=== PATIENT | male | born 1945 | race Caucasian/White ===

== ENCOUNTER 2022-03-09 08:26 | Outpatient (CLI) | payer OTHER, SELFPAY ==
[2022-03-09 12:52] LABS: Cholesterol* 178 mg/dL (90-199)
[2022-03-09 12:53] LABS: HDL Cholesterol* 39 mg/dL (>=40); LDL Cholesterol Calculated 121 mg/dL (<100); Triglycerides* 89 mg/dL (40-149)
[2022-03-09 14:10] LABS: Albumin* 3.8 g/dL (3.3-5.0); Chloride* 111 mmol/L (96-114); Potassium* 4.5 mmol/L (3.6-5.1); Sodium* 140 mmol/L (135-149)
[2022-03-09 14:13] LABS: Alanine Aminotransferase* 17 U/L (4-50); Alkaline Phosphatase* 69 U/L (40-150); Aspartate Amino Transferase* 19 U/L (12-35); Bilirubin Total* 0.6 mg/dL (0.1-1.5); Blood Urea Nitrogen* 18 mg/dL (7-30); Carbon Dioxide* 28 mmol/L (20-32); Creatinine* 0.8 mg/dL (0.5-1.5); Estimated Glomerular Filt Rate 92.29; Glucose* 109 mg/dL (60-115); Total Protein* 6.1 g/dL (6.0-8.3)
[2022-03-09 14:14] LABS: Calcium* 8.8 mg/dL (8.4-10.6)
[2022-03-09 14:45] LABS: PSA Screen* 0.36 ng/mL (0.10-4.00)
[2022-03-10 09:37] LABS: Glucose* 108 mg/dL (60-115)
== END 2022-03-09 08:27 | disposition home or self-care (01) ==
PROVIDERS: PCP Internal Medicine; Visit Provider Internal Medicine
DX: Z00.00 Encounter for general adult medical examination without abnormal findings (principal); E78.5 Hyperlipidemia, unspecified; Z13.9 Encounter for screening, unspecified; E66.9 Obesity, unspecified; Z13.1 Encounter for screening for diabetes mellitus; Z12.5 Encounter for screening for malignant neoplasm of prostate
CPT/HCPCS: 80053; 80061; 82947; 84153

== ENCOUNTER 2022-05-01 08:48 | Outpatient (RCR) | payer OTHER, SELFPAY ==
--- NOTE | 2022-05-01 10:09 | PT.OPEX ---
PT [place] Outpatient Eval PT [facility] Outpatient Eval Start: 05/01/22 09:37 Freq: Status: Active Protocol: Document 05/01/22 09:37 PAIGE (Rec: 05/01/22 10:02 PAIGE [email or web address]) E-signed By Allison Rasheed DPT Physical Therapy Outpatient Evaluation Insurance Information Recert Due Date 07/15/22 Insurance Name [employer] Medical Diagnosis L leg numbness anesthesis of skin Treating Diagnosis L ITB tightness, LB tightness, core/hip/glut weakness Subjective Subjective Patient c/o numbness in his L lateral thigh region - notices it when he touches the area. He denies pain and denies any feeling of tingling/numbness unless he is touching the area . States he was lifting a hitch bike rack into position this past February and had some back pain from the lift. The LBP lasted about 4-5 days and resolved. Patient is concerned that this numbness is related to the back injury. He has been extra careful with lifting since that injury . He has been able to perform his regular daily activities without issues. Denies pain, 0/10. Not needing pain meds. He was using ice/heat initially for his back but nothing lately. Sleep has been ok. Denies any hx of LBP issues. He reports feeling a knotted area in L lateral thigh with rubbing it. Date of Last Physician Visit 04/16/22 Precautions Therapy Limitations/Systems Review Not Limited Assessment Assessment/Impression Patient is a 77 year old male with L ITB tightness, LB tightness, core/hip/glut weakness. He denies pain. Reports having LBP back for 4- 5 days in February after lifting a bike rack. This resolved. Patient reports noticing numbness with touching his L outer thigh region. He denies any burning, tingling, numbness down L LE other than a numb feeling when he touches that area. Patient with L ITB tightness, tenderness with palpation. There is an area of tissue tightness in mid ITB that is the patient's area of concern. L hip/knee ROM are WFL. Patient with some tightness/ stiffness in L hip/LB. Able to loosen up some with treatment this session. Pelvic alignment assessed and equal. Patient reports having a fall earlier this year, landing on his L side and having some L shoulder soreness - doesn't recall any L hip/thigh soreness from that fall. He is hoping to get a HEP to continue with to improve, decreased the numbness in his thigh. Patient would benefit from skilled PT for sx management, improved ITB flexibility, core /hip/glut strengthening, and establishment of HEP. Plan of Care Rehabilitation Potential Good Physical Therapy Goals 1. Decrease/maintain L hip/ thigh pain at less than/equal to 3/10 with daily activities and with the progression of PT activities over the next 4-6 weeks. 2. Improve L ITB flexibility and decrease tightness/ tenderness over the next 4-6 weeks for decreased feeling of numbness in L lateral thigh region. 3. Improve hip/glut/LE/core strength over the next 6-8 weeks for return to full/normal daily activities without flare up of back/hip/thigh pain/sx. 4. Patient will be I with HEP within 8 weeks for progression toward above goals, ongoing self management of pain/sx, ongoing self improvements in L hip ROM/mobility/strength, and for performance of daily activities without flare up of pain. Coordination/Communication With Referral Source Treatment Plan/Direct Interventions Manual Therapy,Therapeutic Exercises Frequency/Duration 1x/week Patient Will Be Discharged From Therapy Completion of LTG(s),Skills Plateau,Independent w/HEP, Independently Progressing Evaluation Billing Untimed Code Treatment Minutes 24 Complexity Low Certification Information Initial Certification Date 05/01/22 Ending Certification Date 07/15/22 Provider Signature Shows Agreement With POC & Medical Necessity Physician Comment/Change Comment or Changes Physician NPI Number #
== END 2022-09-01 10:57 | disposition home or self-care (01) ==
PROVIDERS: PCP Internal Medicine; Visit Provider Internal Medicine
DX: R20.0 Anesthesia of skin (principal); Z51.89 Encounter for other specified aftercare
CPT/HCPCS: 97110; 97140; 97161

== ENCOUNTER 2022-05-08 12:54 | Outpatient (CLI) | payer OTHER, SELFPAY ==
--- OUTSIDE RECORDS SUMMARY | 2022-05-08 12:57 | XMS_ITS | Clinical Summary ---
:1945 Author Organization [facility] [place] [address] Care Team Providers Name Role Phone Sixto Barros MD Primary Care Provider Allergies No known active allergies Medications Medication Sig Dispensed Refills Start Date End Date Status VITAMIN C SR 1,000 MG daily 0 06/08/2007 Active TAB TRIAMCINOLONE ACETONIDE apply a thin 0 06/08/2007 Active 0.1 % TOPICAL CREAM film to the affected skin areas by topical route 2 times per day prn finasteride (PROSCAR) 5 Take 5 mg by 0 07/22/2021 Active mg tablet mouth once daily. cholecalciferol (VITAMIN 0 08/30/2019 Active D3) 1,000 unit capsule Active Problems Not on file Encounters Date Type Specialty Care Team Description 04/08/2022 Office Visit Toño Velasquez, [place] Hearing Problem 04/08/2022 Travel 03/12/2022 Telephone Toño Velasquez, [place] Referral from Last 3 Months Immunizations Name Administration Dates Next Due Td (Age >=7 Years) 08/30/2002 Social History Tobacco Use Types Packs/Day Years Used Date Former Smoker Smokeless Tobacco: Never Used Tobacco Cessation: Counseling Given: Yes Comments: smoked for about 20 years; rhonda t at age 41. Alcohol Use Standard Drinks/Week Comments Yes 0 (1 standard drink = 0.6 oz pure alcoho l) Sex Assigned at Date Recorded Not on file COVID-19 Exposure Response Date Recorded In the last 10 days, have you been in contact with No / Unsu re 04/08/2022 8:24 AM CDT someone who was confirmed or suspected to have Coronavirus/COVID-19? Obstetrics History Last Filed Vital Signs Vital Sign Reading Time Taken Comments Blood Pressure 139/81 12/29/2021 9:44 AM CDT Pulse 81 12/29/2021 9:44 AM CDT Temperature - - Respiratory Rate 18 12/29/2021 9:44 AM CDT Oxygen Saturation 96% 12/29/2021 9:44 AM CDT Inhaled Oxygen Concentration - - Weight 105.3 kg (232 lb 3.2 oz) 12/29/2021 9:44 AM CDT Height - - Body Mass Index - - Plan of Treatment Health Maintenance Due Date Last Done Comments Tdap 1957 Depression screening for age 12+ 1958 BMI (ht and wt on same day) for 1964 age 18+ Hepatitis C screening for age 0804/17/1964 18-79 Zoster (shingles) series for age 0804/17/1996 50+ (1 of 2) Medicare Wellness for age 65+ 2011 Pneumococcal series for age 65+ (1 2011 - PCV) Tetanus booster 08/30/2012 08/30/2002 Influenza for age 65+ 04/30/2022 COVID-19 vaccine series Completed 01/27/2022, 06/03/2021, 11/09/2020, Additional history exists Results Not on filefrom Last 3 Months Insurance Payer Benefit Plan / Subscriber ID Effective Dates Phone Addre ss Type Group [employer] MEDICARE [id number] 2019-Present [address] [place] [address] Care Teams Campus Supervisor Relationship Specialty Start Date End Date Sixto Barros MD PCP - General Internal Medicine 09/01/211999 [place] [address]
--- NOTE | 2022-05-08 13:00 | CRLHL7_ITS ---
For Patients: As a result of the Century Cures Act, medical imaging exams and procedure reports are released immediately into your electronic medical record. You may view this report before your referring provider. If you have questions, please contact your health care provider. INDICATION: Perineal abscess. TECHNIQUE: Pelvic MRI focusing on the anal canal with T1, T2, and postcontrast images. Intravenous gadolinium administered. 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 No other peroneal inflammatory changes or abnormal fluid collections. No pelvic masses or adenopathy. 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 Dictated by Samuel Le MD @ 05/14/2022 10:45:53 AM (Electronically Signed)
== END 2022-05-08 12:55 | disposition home or self-care (01) ==
LOC: MRI 12:55
PROVIDERS: PCP Internal Medicine; Visit Provider Surgery
DX: L02.215 Cutaneous abscess of perineum (principal)
CPT/HCPCS: 72197; A9575

== ENCOUNTER 2022-06-18 14:00 | Outpatient (CLI) | payer OTHER, SELFPAY ==
--- OUTSIDE RECORDS SUMMARY | 2022-06-18 14:04 | XMS_ITS | Clinical Summary ---
:1945 Author Organization [facility] [place] [address] Care Team Providers Name Role Phone Sixto [...] Toño Velasquez, [place] Hearing Problem 04/08/2022 Travel from Last 3 Months Immunizations Name Administration [...] Assigned at Date Recorded Not on file Obstetrics History Last Filed Vital Signs Vital [...] 2011 - PCV) Tetanus booster 08/30/2012 08/30/2002 COVID-19 vaccine series (5 - 03/24/2022 01/27/2022, 021, Booster for Pfizer series) 11/09/2020, Additiona l history exists Influenza for age 65+ 04/30/2022 Results Not on filefrom Last 3 Months Insurance Payer Benefit Plan / Subscriber ID Effective Dates Phone Addre ss Type Group [employer] MR LISANDRA MEDICARE [id number] 2019-Present [address] [place] [address] Care Teams Group Exercise Instructor Relationship Specialty Start Date End Date Sixto Barros MD PCP - General Internal Medicine 09/01/211999 [place] [address]
[2022-06-18 17:16] LABS: Chloride* 106 mmol/L (96-114)
[2022-06-18 17:17] LABS: Potassium* 3.9 mmol/L (3.6-5.1); Sodium* 138 mmol/L (135-149)
[2022-06-18 17:19] LABS: Creatinine* 0.9 mg/dL (0.5-1.5); Estimated Glomerular Filt Rate 89 ml/min
[2022-06-18 17:20] LABS: Blood Urea Nitrogen* 14 mg/dL (7-30); Calcium* 9.2 mg/dL (8.4-10.6); Carbon Dioxide* 24 mmol/L (20-32); Glucose* 167 mg/dL (60-115)
== END 2022-06-18 14:01 | disposition home or self-care (01) ==
PROVIDERS: PCP Internal Medicine; Visit Provider Internal Medicine
DX: K61.0 Anal abscess (principal); E66.9 Obesity, unspecified; R73.03 Prediabetes
CPT/HCPCS: 80048

== ENCOUNTER 2023-03-31 07:50 | Outpatient (CLI) | payer MEDICARE, SELFPAY | END 2023-03-31 07:51 | disposition home or self-care (01) | LOC: NFLDREF 04-01 07:00 | PROVIDERS: PCP Internal Medicine; Referring Provider Internal Medicine; Visit Provider Internal Medicine | DX: R73.03 Prediabetes (principal); E78.5 Hyperlipidemia, unspecified; Z12.5 Encounter for screening for malignant neoplasm of prostate | CPT/HCPCS: 80053; 80061; 84153 ==

== ENCOUNTER 2023-04-06 07:50 | Outpatient (CLI) | payer MEDICARE, SELFPAY | END 2023-04-06 07:51 | disposition home or self-care (01) | LOC: NFLDREF 04-07 14:01 | PROVIDERS: PCP Internal Medicine; Referring Provider Internal Medicine; Visit Provider Internal Medicine | DX: M25.569 Pain in unspecified knee (principal); N32.81 Overactive bladder; E78.5 Hyperlipidemia, unspecified; R73.03 Prediabetes; K60.3 Anal fistula | CPT/HCPCS: 87086 ==

== ENCOUNTER 2023-05-25 12:44 | Emergency (ER) | payer MEDICARE, SELFPAY ==
[2023-05-25 13:53] VITALS: BP 185/79; PULSE 55; RESP 16; TEMP 36.6; O2SAT 98; BMI 32.1
--- NOTE | 2023-05-25 14:32 | CRLHL7_ITS ---
For Patients: As a result of the Century Cures Act, medical imaging exams and procedure reports are released immediately into your electronic medical record. You may view this report before your referring provider. If you have questions, please contact your health care provider. INDICATION: Vertigo. TECHNIQUE: MRI brain: Multiplanar multisequence MR imaging acquired prior to and following intravenous contrast. MRA head: Wtcy-hj-pjktir imaging acquired. MRA neck: [id number]-[id number] and postcontrast imaging acquired. COMPARISON: None. FINDINGS: MRI brain: Prominence of the ventricles and sulci compatible with mild diffuse cerebral volume loss. No mass effect or midline shift. Scattered FLAIR hyperintensities in the supratentorial white matter, typical for mild chronic microvascular ischemic changes. No diffusion restriction to suggest acute infarction. No intracranial hemorrhage or pathologic extra-axial fluid collection. No pathologic intracranial enhancement. The major arterial flow voids of the skullbase are preserved. The globes are symmetric. Mild paranasal sinus mucosal thickening. The mastoid air cells are clear. MRA head: Artifact degrades image quality. The internal carotid, middle cerebral, and anterior cerebral arteries are widely patent. The vertebral, basilar, and posterior cerebral arteries are widely patent. No intracranial aneurysm or high-flow vascular malformation. MRA neck: The innominate and subclavian arteries are widely patent. The common carotid arteries are widely patent. The internal carotid arteries are widely patent. The vertebral arteries are codominant and widely patent. IMPRESSION: 1. No acute intracranial abnormality. 2. Mild chronic microvascular ischemic changes and diffuse cerebral volume loss. 3. Widely patent intracranial and cervical vasculature. Dictated by Evan George MD @ 05/25/2023 4:36:37 PM (Electronically Signed)
[2023-05-25 14:54] VITALS: PULSE 59; O2SAT 96
[2023-05-25 14:55] VITALS: BP 151/74; PULSE 58; RESP 16; O2SAT 98
[2023-05-25 14:59] LABS: Basophils Absolute Auto 0.02 K/uL (0.00-0.30); Basophils Percent Auto 0.3 % (0.0-3.0); Eosinophils Absolute Auto 0.05 K/uL (0.00-0.50); Eosinophils Percent Auto 0.7 % (0.0-7.0); Hemoglobin* 16.1 gm/dL (13.5-17.5); Immature Granulocytes Abs Auto 0.03 K/uL (0.00-0.30); Immature Granulocytes Pct Auto 0.4 %; Lymphocytes Percent Auto 8.8 % (20-44); Mean Corpuscular HGB Conc 35 gm/dL (32-36); Mean Corpuscular Hemoglobin 30 pg (26-34); Mean Corpuscular Volume 87 fL (80-100); Monocytes Percent Auto 5.4 % (0.0-11.0); Neutrophils Percent Auto 84.4 % (42.0-72.0); Platelet Count* 168 K/uL (140-440); RDW Coefficient of Variation % 12.4 % (11.5-15.5); Red Blood Count 5.31 m/uL (4.30-5.90); White Blood Count* 6.69 K/uL (4.50-11.00)
[2023-05-25 15:15] LABS: Chloride* 106 mmol/L (96-114); Potassium* 4.7 mmol/L (3.6-5.1); Sodium* 138 mmol/L (135-149)
[2023-05-25 15:18] LABS: Anion Gap 7 mEq/L (7-15); Blood Urea Nitrogen* 13 mg/dL (7-30); Calcium* 9.4 mg/dL (8.4-10.6); Carbon Dioxide* 25 mmol/L (20-32); Creatinine* 0.7 mg/dL (0.5-1.5); Est. Creatinine Clearance* 65.89; Estimated Glomerular Filt Rate 95 ml/min; Glucose* 121 mg/dL (60-115)
[2023-05-25 15:27] LABS: Slide Review Reflex No
[2023-05-25 16:54] VITALS: BP 147/75; RESP 18; O2SAT 98
--- NOTE | 2023-05-25 16:56 | ED_ITS ---
HPI - General Adult General Date Seen: 05/25/23 Chief complaint: Nausea/Vomiting Stated complaint: Nausea, dizzy, numb, pain in shoulder Time Seen by Provider: 05/25/23 14:18 Source: patient Mode of arrival: ambulatory Limitations: no limitations History of Present Illness HPI narrative: Patient is a 78-year-old male who presents after an episode of vertigo earlier today. He says that this morning he had onset of spinning and imbalance associated with severe nausea, no vomiting. He did not have any associated headache, difficulty with speech or swallowing, he notes that he held onto the wall to get himself to the bathroom where he thought he might throw up but did not. He then laid on the bathroom floor for about an hour because he did not think he would be able to stand up. At some point thereafter his became aware of his situation. They waited at home for another couple hours, symptoms gradually improved and now he feels largely back to normal. He has no history of similar symptoms in the past, denies any history of diabetes, stroke, coronary artery disease or atrial fibrillation. He said sometime in the last year so he was little worried about his blood pressures, had tracked them for a few weeks and then discussed with primary care, who did not feel that he needed treatment for hypertension. Related Data Home Medications Medication Instructions Recorded Confirmed ascorbic acid (vitamin C) 500 mg 1,000 mg PO DAILY 03/12/22 04/23/23 tablet cholecalciferol (vitamin D3) 25 25 mcg PO QDAY 04/06/23 04/23/23 mcg (1,000 unit) capsule Previous Rx's Medication Instructions Recorded finasteride 5 mg tablet 5 mg PO DAILY #90 tabs 02/04/23 tolterodine 1 mg tablet (Detrol) 1 mg PO QDAY Overactive Bladder 05/04/23 #90 tabs Allergies Allergy/AdvReac Type Severity Reaction Status Date / Time No Known Allergies Allergy Verified 04/23/23 10:57 Review of Systems Status of ROS: Reports: 10 or more systems reviewed and unremarkable except as noted in History and below [facility] Medical History Recurrent knee pain ?M25.569 - Pain in unspecified knee (ICD-10) Subconjunctival hemorrhage ?H11.30 - Conjunctival hemorrhage, unspecified eye (ICD-10) Left leg numbness ?R20.0 - Anesthesia of skin (ICD-10) Health care directive on file ?Z78.9 - Other specified health status (ICD-10) Overactive bladder ?N32.81 - Overactive bladder (ICD-10) Hearing loss ?H91.90 - Unspecified hearing loss, unspecified ear (ICD-10) Hemorrhoids ?K64.9 - Unspecified hemorrhoids (ICD-10) Social History Smoking Status: Never smoker Little interest or pleasure in doing things: not at all Feeling down, depressed, or hopeless: not at all Exam Narrative: Exam Narrative: Vital signs as noted above. In general, an alert, well-appearing patient. Head: Normocephalic, atraumatic. Eyes: Pupils are equal reactive. Extraocular movements are full. Conjunctivae are normal. No nystagmus. ENT: Mucous membranes are moist. Throat is normal. Neck: Supple without lymphadenopathy. No bruits. Heart: Regular rate and rhythm. No murmur or rub. Lungs: Clear bilaterally. No increased work of breathing, crackles or wheezes. Abdomen: Soft and nontender. No organomegaly. Extremities: Well perfused. No edema. No calf tenderness. Pulses intact. Neurologic: Patient is alert and oriented to person and place. Speech is fluent. Face is symmetric. Moves all extremities equally. Cerebellar function is intact by finger-nose and heel-silva testing. Affect: Normal. Skin: Warm and dry. Well perfused. Const: Vital Signs, click to edit/add: Vital Signs - 24 hr 05/25/23 13:53 05/25/23 14:54 05/25/23 14:55 Temperature 97.9 F Pulse Rate 59 L 58 L Pulse Rate [Right Pulse Oximeter] 55 L Respiratory Rate 16 16 Blood Pressure 151/74 H Blood Pressure [Ri ght Upper Arm] 185/79 H Pulse Oximetry 98 96 98 Oxygen Delivery Me thod Room Air 05/25/23 16:54 Temperature Pulse Rate Pulse Rate [Right Pulse Oximeter] Respiratory Rate 18 Blood Pressure Blood Pressure [Ri ght Upper Arm] 147/75 H Pulse Oximetry 98 Oxygen Delivery Me thod Room Air Documenting provider has reviewed patient's vital signs: yes Course Course ED Course: Etiology of his symptoms is unclear at this time, he is not currently symptomatic but exam is certainly normal right now. Given his age and shorter duration of symptoms I elected to do an MRI to rule out evidence of stroke or TIA. He had an EKG here which showed a sinus bradycardia ventricular rate of 57. He has a right bundle-branch block no acute ST segment changes. Labs were unremarkable, electrolytes were normal, hemoglobin 16.1. He went on to have an MRI of the brain as well as an MR angiogram of the head and neck. These are read by Radiology as follows: document embedded [address] [address] Diagnostic Imaging Report Patient: Earl Gentile (Fred) MR#: [id number] : 1945 Acct:[id number] Loc: ED Service Date: 05/25/[address]: Ordering Physician: Lynnette Blakely M.D. Date of Service: 05/25/23 Procedure(s): MR head/brain wo/w con Accession Number(s): [id number] cc: Lynnette Blakely M.D.; Sixto Barros M.D.~ For Patients: As a result of the Century Cures Act, medical imaging exams and procedure reports are released immediately into your electronic medical record. You may view this report before your referring provider. If you have questions, please contact your health care provider. INDICATION: Vertigo. TECHNIQUE: MRI brain: Multiplanar multisequence MR imaging acquired prior to and following intravenous contrast. MRA head: Pbca-qs-esjhfr imaging acquired. MRA neck: Lqbk-hk-vxalyf and postcontrast imaging acquired. COMPARISON: None. FINDINGS: MRI brain: Prominence of the ventricles and sulci compatible with mild diffuse cerebral volume loss. No mass effect or midline shift. Scattered FLAIR hyperintensities in the supratentorial white matter, typical for mild chronic microvascular ischemic changes. No diffusion restriction to suggest acute infarction. No intracranial hemorrhage or pathologic extra-axial fluid collection. No pathologic intracranial enhancement. The major arterial flow voids of the skullbase are preserved. The globes are symmetric. Mild paranasal sinus mucosal thickening. The mastoid air cells are clear. MRA head: Artifact degrades image quality. The internal carotid, middle cerebral, and anterior cerebral arteries are widely patent. The vertebral, basilar, and posterior cerebral arteries are widely patent. No intracranial aneurysm or high-flow vascular malformation. MRA neck: The innominate and subclavian arteries are widely patent. The common carotid arteries are widely patent. The internal carotid arteries are widely patent. The vertebral arteries are codominant and widely patent. IMPRESSION: 1. No acute intracranial abnormality. 2. Mild chronic microvascular ischemic changes and diffuse cerebral volume loss. 3. Widely patent intracranial and cervical vasculature. Overall at this time, I do not have significant evidence on history or workup of stroke/TIA. Symptoms are more likely to have been peripheral in nature. We discussed however that if he has recurrence of symptoms, particularly if associated with other neurologic deficits that he should come to the hospital right away rather than waiting for several hours at home. Otherwise primary care follow-up as needed for further concerns. Vital Signs Vital signs: Initial Vital Signs Temperature 97.9 F 05/25/23 13:53 Temperature Source Temporal Artery Scan 05/25/23 13:53 Pulse Rate 55 L 05/25/23 13:53 Pulse Rhythm Regular 05/25/23 13:53 Respiratory Rate 16 05/25/23 13:53 Blood Pressure 185/79 H 05/25/23 13:53 Blood Pressure Mean 114 H 05/25/23 13:53 Blood Pressure Position Sitting 05/25/23 13:53 Pulse Oximetry 98 05/25/23 13:53 Oxygen Delivery Method Room Air 05/25/23 13:53 Vital Signs Temperature 97.9 F 05/25/23 13:53 Pulse Rate 55 L 05/25/23 13:53 Respiratory Rate 16 05/25/23 13:53 Blood Pressure 185/79 H 05/25/23 13:53 Pulse Oximetry 98 05/25/23 13:53 Oxygen Delivery Method Room Air 05/25/23 13:53 Temperature 97.9 F 05/25/23 13:53 Pulse Rate 58 L 05/25/23 14:55 Respiratory Rate 18 05/25/23 16:54 Blood Pressure 147/75 H 05/25/23 16:54 Pulse Oximetry 98 05/25/23 16:54 Oxygen Delivery Method Room Air 05/25/23 16:54 Medical Decision Making Lab Data Labs: Lab Results 05/25/23 Range/Units 14:48 WBC 6.69 (4.50-11.00) K/uL RBC 5.31 (4.30-5.90) m/uL Hgb 16.1 (13.5-17.5) gm/dL Hct 46.0 (37.0-53.0) % MCV 87 (80-100) fL MCH 30 (26-34) pg MCHC 35 (32-36) gm/dL RDW Coeff of Ilir 12.4 (11.5-15.5) % Plt Count 168 (140-440) K/uL Neut % (Auto) 84.4 H (42.0-72.0) % Lymph % (Auto) 8.8 L (20-44) % Snyder % (Auto) 5.4 (0.0-11.0) % Eos % (Auto) 0.7 (0.0-7.0) % Baso % (Auto) 0.3 (0.0-3.0) % Neut # (Auto) 5.60 (1.7-7.0) K/uL Lymph # (Auto) 0.60 L (0.90-2.90) K/uL Snyder # (Auto) 0.40 (0.00-0.90) K/UL Eos # (Auto) 0.05 (0.00-0.50) K/uL Baso # (Auto) 0.02 (0.00-0.30) K/uL Abs Immat Gran (auto) 0.03 (0.00-0.30) K/uL Imm/Tot Granulo (auto) 0.4 % Sodium 138 (135-149) mmol/L Potassium 4.7 (3.6-5.1) mmol/L Chloride 106 (96-114) mmol/L Carbon Dioxide 25 (20-32) mmol/L Anion Gap 7 (7-15) mEq/L BUN 13 (7-30) mg/dL Creatinine 0.7 (0.5-1.5) mg/dL Estimated Creat Clear 65.89 Estimated GFR 95 ml/min Glucose 121 H (60-115) mg/dL Calcium 9.4 (8.4-10.6) mg/dL Discharge Plan Discharge Clinical Impression: Vertigo Patient Disposition: Home, Self-Care Condition: Improved Instructions: Vertigo (ED) Additional Instructions: Primary care follow-up for recheck in the next week or 2. Your MRI today shows no evidence of recent stroke and no narrowing of any of the blood vessels in your neck or brain. Symptoms are likely related to inner ear malfunction, but if you have recurrent symptoms, particularly if associated with other symptoms s uch as difficulty with hearing or speech, gait imbalance, weakness numbness etcetera, return to the emergency department right away. Prescriptions: No Action cholecalciferol (vitamin D3) 25 mcg (1,000 unit) capsule 25 mcg PO QDAY ascorbic acid (vitamin C) 500 mg tablet 1,000 mg PO DAILY finasteride 5 mg tablet 5 mg PO DAILY Qty: 90 3RF tolterodine [Detrol] 1 mg tablet 1 mg PO QDAY Qty: 90 3RF Follow Up/Referrals: Sixto aBrros MD [Primary Care Provider] - Stand Alone Forms: [employer] Info Instructions
== END 2023-05-25 16:55 | disposition home or self-care (01) ==
PROVIDERS: Emergency Provider Emergency Medicine; PCP Internal Medicine
DX: R42 Dizziness and giddiness (principal)
CPT/HCPCS: 36415; 70544; 70549; 70553; 80048; 85025; 93005; 99284; 99285; A9575

== ENCOUNTER 2023-12-23 09:24 | Outpatient (CLI) | payer MEDICARE, SELFPAY ==
--- OUTSIDE RECORDS SUMMARY | 2024-01-13 11:42 | XMS_ITS | Referral Summary ---
Author Name Unknown Organization [facility] Address [address] [place] [address] Care Team Providers Care Wine Maker Name Role Phone Sixto Barros MD Primary Care Provider Allergies No known active allergies Medications Medication Sig Dispensed Refills Start Date End Date Status ascorbic acid 1000 MG TABS tablet Take 1,000 mg by mouth daily Active vitamin D3 (CHOLECALCIFEROL) 50 mcg (2000 units) tablet Take 1 tablet by mouth daily Active finasteride (PROSCAR) 5 MG tablet Take 5 mg by mouth daily Active oxyCODONE (ROXICODONE) 5 MG tabletIndications:Lulú fistula Take 1 tablet (5 mg) by mouth every 4 hours as needed for moderate to severe pain 6 tablet 07/02/2022 Active Social History Tobacco Use Types Packs/Day Years Used Date Smoking Tobacco: Never Smokeless Tobacco: Never Tobacco Cessation:Counseling Given: Not Answered Alcohol Use Standard Drinks/Week Comments Not Currently 0 (1 standard drink = 0.6 oz pur e alcohol) Adolescent Education Answer Date Record ed Getting School Help Needed Not on file 05/22 Sex and Gender Information Value Date Recorded Sex Assigned at Male 06/14/2022 11:41 AM CDT Gender Identity Male 06/14/2022 11:41 AM CDT Sexual Orientation Straight 06/14/2022 11 :41 AM CDT Last Filed Vital Signs Vital Sign Reading Time Taken Comments Blood Pressure 174/54 07/02/2022 12:45 PM CDT Pulse 70 07/02/2022 12:45 PM CDT Temperature 36 ??C (96.8 ??F) 07/02/2022 12:13 PM CDT Respiratory Rate 20 07/02/2022 12:45 PM CDT Oxygen Saturation 95% 07/02/2022 12:45 PM CDT Inhaled Oxygen Concentration - - Weight 103.9 kg (229 lb) 07/02/2022 8:59 AM CDT Height 180.3 cm (5' 11) 07/02/2022 8:59 AM CDT Body Mass Index 31.94 07/02/2022 8:59 AM CDT Plan of Treatment Not on file Procedures Procedure Name Priority Date/Time Associated Diagnosis Comments COLONOSCOPY Routine 07/02/2022 9:59 AM CDT from Last 3 Months or Most Recently Relevant to Health Maintenance Results * COLONOSCOPY (07/02/2022 9:59 AM CDT) COLONOSCOPY [place] [address] [address] ??[place] ??[address] Patient Name: Earl Matos ?Procedure Date: 07/02/2022 9:59 AM ? Date of : 1945 ?Admit Type: Outpatient Age: 77 ? Room: OR [facility] Note Status: Finalized ?Attending MD: ANASTASIA CLAUDIO MD Total Sedation Time: See anesthesia report. Instrument Name: 415 [id number]-[id number] Colonoscope Procedure: ?Colonoscopy Indications: ?Screening for colorectal malignant neoplasm, ?Incidental - Anorectal fistula Providers: ?ANASTASIA CLAUDIO MD, Nikki Wilson RN Referring : ? Medicines: ?Monitored Anesthesia Care Complications: ?No immediate complications. Procedure: ?Pre-Anesthesia Assessment: ?- Prior to the procedure, a History and Physical ?was performed, and patient medications and ?allergies were reviewed. The patient is competent. ?The risks and benefits of the procedure and the ?sedation options and risks were discussed with the ?patient. All questions were answered and informed ?consent was obtained. Patient identification and ?proposed procedure were verified by the physician ?and the nurse in the procedure room. Mental Status ?Examination: alert and oriented. Airway ?Examination: normal oropharyngeal airway and neck ?mobility. Respiratory Examination: clear to ?auscultation. CV Examination: normal. Prophylactic ?Antibiotics: The patient does not require ?prophylactic antibiotics. Prior Anticoagulants: The ?patient has taken no anticoagulant or antiplatelet ?agents. ASA Grade Assessment: II - A patient with ?mild systemic disease. After reviewing the risks ?and benefits, the patient was deemed in ?satisfactory condition to undergo the procedure. ?The anesthesia plan was to use monitored anesthesia ?care (MAC). Immediately prior to administration of ?medications, the patient was re-assessed for ?adequacy to receive sedatives. The heart rate, ?respiratory rate, oxygen saturations, blood ?pressure, adequacy of pulmonary ventilation, and ?response to care were monitored throughout the ?procedure. The physical status of the patient was ?re-assessed after the procedure. ?After obtaining informed consent, the colonoscope ?was passed under direct vision. Throughout the ?procedure, the patient's blood pressure, pulse, and ?oxygen saturations were monitored continuously. The ?Colonoscope was introduced through the anus and ?advanced to the cecum, identified by appendiceal ?orifice and ileocecal valve. The colonoscopy was ?performed with ease. The patient tolerated the ?procedure well. The quality of the bowel ?preparation was good. The terminal ileum, ileocecal ?valve, appendiceal orifice, and rectum were ?photographed. ? Findings: ? The perianal exam findings include perianal fistula. ? The digital rectal exam was normal. Pertinent negatives include normal ? sphincter tone, no palpable rectal lesions and normal prostate (size, ? shape, and consistency). ? The terminal ileum appeared normal. ? A 2 mm polyp was found in the cecum. The polyp was sessile. The polyp ? was removed with a cold snare. Resection and retrieval were complete. ? Estimated blood loss: none. ? Two sessile polyps were found in the ascending colon. The polyps were 2 ? to 7 mm in size. These polyps were removed with a hot snare. Resection ? and retrieval were complete. Estimated blood loss was minimal. ? Internal hemorrhoids were found during retroflexion. The hemorrhoids ? were moderate. ? Impression: ? 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 ?- The examined portion of the ileum was normal. ?- One 2 mm polyp in the cecum, removed with a cold ?snare. Resected and retrieved. ?- Two 2 to 7 mm polyps in the ascending colon, ?removed with a hot snare. Resected and retrieved. ?- Internal hemorrhoids. Recommendation: ? - Repeat colonoscopy in 5 years for surveillance. ?Remained int he OR for a fistulotomy. ? Procedure Code(s): ? --- Professional --- ? 97170, Colonoscopy, flexible; with removal of tumor(s), polyp(s), or ? other lesion(s) by snare technique Diagnosis Code(s): ? --- Professional --- ? K63.5, Polyp of colon ? Z12.11, Encounter for screening for malignant neoplasm of colon ? K60.3, Anal fistula ? K64.8, Other hemorrhoids CPT copyright 2020 [employer]. All rights reserved. The codes documented in this report are preliminary and upon senior cyber intelligence analyst review may be revised to meet current compliance requirements. ____ ANASTASIA CLAUDIO MD 07/02/2022 11:57:41 AM I was physically present for the entire viewing portion of the exam. ANASTASIA CLAUDIO MD Number of Addenda: 0 Note Initiated On: 07/02/2022 9:59 AM Total Procedure Duration: 0 hours 27 minutes 44 seconds Scope In: 10:28:48 AM Scope Out: 10:56:32 AM RADIOLOGY RESULTS 07/02/2022 9:59 AM CDT Anastasia Claudio MD PROCEDURES RADIOLOGY RESULTS from Last 3 Months or Most Recently Relevant to Health Maintenance Care Teams Wine Maker Relationship Specialty Start Date End Date Sixto Barros MD [facility] [address] [place] [address] PCP - General Emergency Medicine 07/02/22
--- OUTSIDE RECORDS SUMMARY | 2024-01-13 11:42 | XMS_ITS | Clinical Summary ---
Author Name Unknown Organization [facility] Address [place], [place] [address] Care Team Providers Care Scrubber System Attendant Name Role Phone Sixto Barros MD Primary Care Provider Allergies No known active allergies Medications Medication Sig Dispensed Refills Start Date End Date Status VITAMIN C SR 1,000 MG TAB daily 0 06/08/2007 Active TRIAMCINOLONE ACETONIDE 0.1 % TOPICAL CREAM apply a thin film to the affected skin areas by topical route 2 times per day prn 0 06/08/2007 Active finasteride (PROSCAR) 5 mg tablet Take 5 mg by mouth once daily. 07/22/2021 Active cholecalciferol (VITAMIN D3) 1,000 unit capsule 08/30/2019 Active Immunizations Name Administration Dates Next Due Td (Age >=7 Years) 08/30/2002 Social History Tobacco Use Types Packs/Day Years Used Date Smoking Tobacco: Former Smokeless Tobacco: Never Tobacco Cessation:Counseling Given: Yes Comments:smoked for about 20 years; quit at age 41. Alcohol Use Standard Drinks/Week Comments Yes 0 (1 standard drink = 0.6 oz pur e alcohol) Sex and Gender Information Value Date Recorded Sex Assigned at Not on file Gender Identity Not on file Sexual Orientation Not on file Obstetrics History Last Filed [...] (ht and wt on same day) for age 18+ 1964 Hepatitis C screening for ag e 18-79 1964 Zoster (shingles) series for age 50+ (1 of 2) 1996 Medicare Wellness for age 65+ 2011 Pneumococcal series for age 65+ (1 of 1 - PCV) 2011 Tetanus booster 08/30/2012 08/30/2002 COVID-19 vaccine series (2022-24 season) 2023 01/27/2022, 06/03/2021, 11/09/2020, Additional history exists Influenza for age 65+ 04/30/2024 Care Teams Scrubber System Attendant Relationship Specialty Start Date End Date Sixto Barros MD [address] [place] [address] PCP - General Internal Medicine 09/01/21
--- OUTSIDE RECORDS SUMMARY | 2024-01-13 11:42 | XMS_ITS | Clinical Summary ---
Author Name Unknown Organization [facility] Address [address] [place] [address] Care Team Providers Care Process Engineering Manager Name Role Phone Sixto Barros MD Primary [...] 07/02/2022 8:59 AM CDT Plan of Treatment Health Maintenance Due Date Last Done Comments ADVANCE CARE PLANNING 1945 ANNUAL REVIEW OF HM ORDERS 1945 CT COLONOGRAPHY 1945 FIT 1945 FLEX SIG 1945 GLUCOSE 1945 sDNA (Cologuard) 1945 HEPATITIS C SCREENING 1964 LIPID 1986 RSV VACCINE ( & 60+) (1 - 1-dose 60+ series) 2006 FALL RISK ASSESSMENT 2011 MEDICARE ANNUAL WELLNESS VISIT 2011 COVID-19 Vaccine ( season) 2023 06/16/2022, 01/27/2022, 06/03/2021, Additional history exists PHQ-2 (once per calendar year) 2023 INFLUENZA VACCINE (Season Ended) 2024 06/16/2022, 06/26/2021, 06/12/2020, Additional history exists COLONOSCOPY 07/02/2027 07/02/2022, 07/02/2022 COLORECTAL CANCER SCREENING 07/02/2027 DTAP/TDAP/TD IMMUNIZATION (3 - Td or Tdap) 03/13/2031 03/13/2021, 03/18/2012, 07/12/2003, Additional history exists Pneumococcal Vaccine: 65+ Years Completed 04/22/2015, 03/18/2012, 09/30/2004 ZOSTER IMMUNIZATION Completed 06/26/2021, 03/13/2021, 04/07/2013 HPV IMMUNIZATION Aged Out No longer e ligible based on patient's age to complete this topic IPV IMMUNIZATION Aged Out No longer e ligible based on patient's age to complete this topic MENINGITIS IMMUNIZATION Aged Out No l onger eligible based on patient's age to complete this topic RSV MONOCLONAL ANTIBODY Aged Out No l onger eligible based on patient's age to complete this topic Procedures Procedure Name Priority Date/Time Associated Diagnosis Comments COLONOSCOPY Routine 07/02/2022 9:59 AM CDT from Last 3 Months or Most Recently Relevant to Health Maintenance Results * COLONOSCOPY (07/02/2022 9:59 AM CDT) COLONOSCOPY [place] [address] [address] ??[place] ??[address] Patient Name: Earl Matos ?Procedure Date: 07/02/2022 9:59 AM ? Date of : 1945 ?Admit Type: Outpatient Age: 77 ? Room: [place] [address] Note Status: Finalized ?Attending MD: ANASTASIA CLAUDIO MD Total Sedation Time: See anesthesia report. Instrument Name: 415 [id number] Colonoscope Procedure: ?Colonoscopy Indications: ?Screening for colorectal malignant neoplasm, ?Incidental - Anorectal fistula Providers: ?ANASTASIA CLAUDIO MD, Nikki Wilson RN Referring MD: ? Medicines: ?Monitored Anesthesia Care Complications: ?No [...] Procedure Code(s): ? --- Professional --- ? 22035, Colonoscopy, flexible; with removal of tumor(s), polyp(s), or ? other lesion(s) by snare technique Diagnosis Code(s): ? --- Professional --- ? K63.5, Polyp of colon ? Z12.11, Encounter for screening for malignant neoplasm of colon ? K60.3, Anal fistula ? K64.8, Other hemorrhoids CPT copyright 2020 [employer]. All rights reserved. The codes documented in this report are preliminary and upon senior test analyst review may be revised to meet [...] Recently Relevant to Health Maintenance Care Teams Process Engineering Manager Relationship Specialty Start Date End Date Sixto Barros MD [facility] [address] [place] [address] PCP - General Emergency Medicine 07/02/22
== END 2023-12-23 09:25 | disposition home or self-care (01) ==
LOC: NFLDREF 01-13 11:38
PROVIDERS: PCP Internal Medicine; Referring Provider Internal Medicine; Visit Provider Internal Medicine
DX: E78.5 Hyperlipidemia, unspecified (principal); R73.03 Prediabetes
CPT/HCPCS: 80053; 80061; G0103

== ENCOUNTER 2024-08-01 10:05 | Outpatient (CLI) | payer MEDICARE, SELFPAY ==
--- OUTSIDE RECORDS SUMMARY | 2024-08-01 10:09 | XMS_ITS | Referral Summary ---
Author Organization [facility] Address [address] [place] [address] Care Team Providers Care Bromination Equipment Operator Name Role Phone Sixto Barros MD Primary Care Provider Allergies No known active allergies Medications ascorbic acid 1000 MG TABS tablet Take 1,000 mg by mouth daily Active vitamin D3 (CHOLECALCIFERO L) 50 mcg (2000 units) tablet Take 1 tablet by mouth daily Active finasteride (PROSCAR) 5 MG tablet Take 5 mg by mouth daily Active oxyCODONE (ROXICODONE) 5 MG tabletIndicatio ns:Anal fistula Take 1 tablet (5 mg) by [...] Assigned at Male 06/14/2022 11:41 AM CDT Legal Sex Male 10:51 AM CDT Gender Identity Male 06/14/2022 11:41 AM CDT Sexual Orientation Straight 06/14/2022 11 :41 AM CDT Last Filed Vital Signs Vital Sign Reading Time Taken Comments Blood Pressure 174/54 07/02/2022 12:45 PM CDT Pulse 70 07/02/2022 12:45 PM CDT Temperature 36 C (96.8 F) 07/02/2022 12:13 PM CDT Respiratory Rate 20 [...] Results * COLONOSCOPY (07/02/2022 9:59 AM CDT) [facility] COLONOSCOPY [place] [address] [place] [address] Patient Name: Earl Matos Procedure Date: 07/02/2022 9:59 AM Date of : 1945 Admit Type: Outpatient Age: 77 Room: [place] [address] Note Status: Finalized Attending MD: ANASTASIA CLAUDIO MD Total Sedation Time: See anesthesia report. Instrument Name: 415 [id number]-[id number] Colonoscope Procedure: Colonoscopy Indications: Screening for colorectal malignant neoplasm, Incidental - Anorectal fistula Providers: ANASTASIA CLAUDIO MD, Nikki Wilson RN Referring MD: Medicines: Monitored Anesthesia Care Complications: No immediate complications. Procedure: Pre-Anesthesia Assessment: - Prior to the procedure, a History and Physical was performed, and patient medications and allergies were reviewed. The patient is competent. The risks and benefits of the procedure and the sedation options and risks were discussed with the patient. All questions were answered and informed consent was obtained. Patient identification and proposed procedure were verified by the physician and the nurse in the procedure room. Mental Status Examination: alert and oriented. Airway Examination: normal oropharyngeal airway and neck mobility. Respiratory Examination: clear to auscultation. CV Examination: normal. Prophylactic Antibiotics: The patient does not require prophylactic antibiotics. Prior Anticoagulants: The patient has taken no anticoagulant or antiplatelet agents. ASA Grade Assessment: II - A patient with mild systemic disease. After reviewing the risks and benefits, the patient was deemed in satisfactory condition to undergo the procedure. The anesthesia plan was to use monitored anesthesia care (MAC). Immediately prior to administration of medications, the patient was re-assessed for adequacy to receive sedatives. The heart rate, respiratory rate, oxygen saturations, blood pressure, adequacy of pulmonary ventilation, and response to care were monitored throughout the procedure. The physical status of the patient was re-assessed after the procedure. After obtaining informed consent, the colonoscope was passed under direct vision. Throughout the procedure, the patient's blood pressure, pulse, and oxygen saturations were monitored continuously. The Colonoscope was introduced through the anus and advanced to the cecum, identified by appendiceal orifice and ileocecal valve. The colonoscopy was performed with ease. The patient tolerated the procedure well. The quality of the bowel preparation was good. The terminal ileum, ileocecal valve, appendiceal orifice, and rectum were photographed. Findings: The perianal exam findings include perianal fistula. The digital rectal exam was normal. Pertinent negatives include normal sphincter tone, no palpable rectal lesions and normal prostate (size, shape, and consistency). The terminal ileum appeared normal. A 2 mm polyp was found in the cecum. The polyp was sessile. The polyp was removed with a cold snare. Resection and retrieval were complete. Estimated blood loss: none. Two sessile polyps were found in the ascending colon. The polyps were 2 to 7 mm in size. These polyps were removed with a hot snare. Resection and retrieval were complete. Estimated blood loss was minimal. Internal hemorrhoids were found during retroflexion. The hemorrhoids were moderate. 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 - The examined portion of the ileum was normal. - One 2 mm polyp in the cecum, removed with a cold snare. Resected and retrieved. - Two 2 to 7 mm polyps in the ascending colon, removed with a hot snare. Resected and retrieved. - Internal hemorrhoids. Recommendation: - Repeat colonoscopy in 5 years for surveillance. Remained int he OR for a fistulotomy. Procedure Code(s): --- Professional --- 26538, Colonoscopy, flexible; with removal of tumor(s), polyp(s), or other lesion(s) by snare technique Diagnosis Code(s): --- Professional --- K63.5, Polyp of colon Z12.11, Encounter for screening for malignant neoplasm of colon K60.3, Anal fistula K64.8, Other hemorrhoids CPT copyright 2020 [employer]. All rights reserved. The codes documented in this report are preliminary and upon professor of apologetics review may be revised to meet current [...] AM RADIOLOGY RESULTS 07/02/2022 9:59 AM CDT us Anastasia Claudio MD PROCEDURES Final Resu lt RADIOLOGY RESULTS from Last 3 Months or Most Recently Relevant to Health Maintenance Insurance [facility] MEDICARE Care Teams Bromination Equipment Operator Relationship Specialty Start Date End Date Sixto Barros MD [facility] [address] [place] [address] PCP - General Emergency Medicine 07/02/22
--- OUTSIDE RECORDS SUMMARY | 2024-08-01 10:09 | XMS_ITS | Clinical Summary ---
Author Organization [facility] Address [place], [place] [address] Care Team Providers Care Metaphysics Teacher Name Role Phone Sixto Barros MD Primary [...] - PCV) 2011 Tetanus booster 08/30/2012 08/30/2002 RSV vaccine for adults or (1 - 1-dose 75+ series) 2021 COVID-19 vaccine series ( season) 2024 01/27/2022, 06/03/2021, 11/09/2020, Additional history exists Influenza for age 65+ 04/30/2024 Care Teams Metaphysics Teacher Relationship Specialty Start Date End Date Sixto Barros MD [address] [place] [address] PCP - General Internal Medicine 09/01/21
--- OUTSIDE RECORDS SUMMARY | 2024-08-01 10:09 | XMS_ITS | Clinical Summary ---
Author Organization [facility] Address [address] [place] [address] Care Team Providers Care Bath Attendant Name Role Phone Sixto Barros MD [...] 1945 HEPATITIS C SCREENING 1964 LIPID 1986 FALL RISK ASSESSMENT 2011 MEDICARE ANNUAL WELLNESS VISIT 2011 RSV VACCINE (1 - 1-dose 75+ series) 2021 PHQ-2 (once per calendar year) 2023 COVID-19 Vaccine (2023- season) 2024 06/16/2022, 01/27/2022, 06/03/2021, Additional history exists INFLUENZA VACCINE (#1) 2024 , 06/26/2021, 06/12/2020, Additional history exists COLONOSCOPY 07/02/2027 [...] * COLONOSCOPY (07/02/2022 9:59 AM CDT) COLONOSCOPY [place] [address] [address] [place], [place] [address] Patient Name: Earl Matos Procedure Date: 07/02/2022 9:59 AM Date of : 1945 Admit Type: Outpatient Age: 77 Room: [place] [address] Note Status: Finalized Attending MD: ANASTASIA CLAUDIO [...] a fistulotomy. Procedure Code(s): --- Professional --- 70887, Colonoscopy, flexible; with removal of tumor(s), polyp(s), or other lesion(s) by snare technique Diagnosis Code(s): --- Professional --- K63.5, Polyp of colon Z12.11, Encounter for screening for malignant neoplasm of colon K60.3, Anal fistula K64.8, Other hemorrhoids CPT copyright 2020 [employer]. All rights reserved. The codes documented in this report are preliminary and upon social worker health services review may be revised to meet current [...] Most Recently Relevant to Health Maintenance Insurance [employer] MEDICARE Care Teams Bath Attendant Relationship Specialty Start Date End Date Sixto Barros MD [facility] [address] [place] [address] PCP - General Emergency Medicine 07/02/22
== END 2024-08-01 10:06 | disposition home or self-care (01) ==
LOC: NFLDREF 10:07
PROVIDERS: PCP Internal Medicine; Visit Provider Internal Medicine
DX: R31.9 Hematuria, unspecified (principal)
CPT/HCPCS: 80048; 87086; 87186

== ENCOUNTER 2024-08-03 10:45 | Outpatient (CLI) | payer MEDICARE, SELFPAY ==
--- OUTSIDE RECORDS SUMMARY | 2024-08-03 10:51 | XMS_ITS | Referral Summary ---
Author Organization [facility] Address [address] [place] [address] Care Team Providers Care Paint Roller Covermaker Name Role Phone Sixto Barros MD Primary [...] Results * COLONOSCOPY (07/02/2022 9:59 AM CDT) [facility] COLONOSCOPY [place] [address] [place] [address] Patient Name: Earl Matos Procedure Date: 07/02/2022 9:59 AM Date of : 1945 Admit Type: Outpatient Age: 77 Room: [place] [address] Note Status: Finalized Attending MD: ANASTASIA CLAUDIO [...] a fistulotomy. Procedure Code(s): --- Professional --- 92790, Colonoscopy, flexible; with removal of tumor(s), polyp(s), or other lesion(s) by snare technique Diagnosis Code(s): --- Professional --- K63.5, Polyp of colon Z12.11, Encounter for screening for malignant neoplasm of colon K60.3, Anal fistula K64.8, Other hemorrhoids CPT copyright 2020 [employer] [employer]. All rights reserved. The codes documented in this report are preliminary and upon slug press operator review may be revised to meet current [...] Most Recently Relevant to Health Maintenance Insurance [facility] MEDICARE Care Teams Paint Roller Covermaker Relationship Specialty Start Date End Date Sixto Barros MD [facility] [place] 2[facility] [address] [place] [address] PCP - General Emergency Medicine 07/02/22
--- OUTSIDE RECORDS SUMMARY | 2024-08-03 10:51 | XMS_ITS | Clinical Summary ---
Author Organization [facility] Address [address] [place] [address] Care Team Providers Care Substance Abuse Technician Name Role Phone Sixto Barros MD Primary [...] * COLONOSCOPY (07/02/2022 9:59 AM CDT) COLONOSCOPY [place] [address] [address] [place], [place] [address] Patient Name: Earl Matos Procedure Date: 07/02/2022 9:59 AM Date of : 1945 Admit Type: Outpatient Age: 77 Room: [place] [address] Note Status: Finalized Attending MD: ANASTASIA CLAUDIO [...] a fistulotomy. Procedure Code(s): --- Professional --- 16705, Colonoscopy, flexible; with removal of tumor(s), polyp(s), or other lesion(s) by snare technique Diagnosis Code(s): --- Professional --- K63.5, Polyp of colon Z12.11, Encounter for screening for malignant neoplasm of colon K60.3, Anal fistula K64.8, Other hemorrhoids CPT copyright 2020 [employer]. All rights reserved. The codes documented in this report are preliminary and upon construction code administrator review may be revised to meet current compliance requirements. ____ ANASTASIA CLAUDIO MD 07/02/2022 11:57:41 AM I was physically present for the entire viewing portion of the exam. ANASTASIA CLAUIDO MD Number of Addenda: 0 Note Initiated On: 07/02/2022 9:59 AM Total Procedure Duration: 0 hours 27 minutes 44 seconds Scope In: 10:28:48 AM Scope Out: 10:56:32 AM RADIOLOGY RESULTS 07/02/2022 9:59 AM CDT us Anastasia Claudio MD PROCEDURES Final Resu lt RADIOLOGY RESULTS from Last 3 Months or Most Recently Relevant to Health Maintenance Insurance [employer] MEDICARE Care Teams Substance Abuse Technician Relationship Specialty Start Date End Date Sixto Barros MD [facility] [address] [place] [address] PCP - General Emergency Medicine 07/02/22
--- OUTSIDE RECORDS SUMMARY | 2024-08-03 10:51 | XMS_ITS | Clinical Summary ---
Author Organization [facility] Address [place], [place] [address] Care Team Providers Care After School Coordinator Name Role Phone Sixto Barros MD Primary [...] Influenza for age 65+ 04/30/2024 Care Teams After School Coordinator Relationship Specialty Start Date End Date Sixto Barros MD [address] [place] [address] PCP - General Internal Medicine 09/01/21
--- NOTE | 2024-08-03 11:00 | CRLHL7_ITS ---
For Patients: As a result of the Century Cures Act, medical imaging exams and procedure reports are released immediately into your electronic medical record. You may view this report before your referring provider. If you have questions, please contact your health care provider. INDICATION: Hematuria. TECHNIQUE: CT abdomen and pelvis acquired without IV contrast. COMPARISON: None. FINDINGS: Lower chest: Unremarkable. Liver: Right and left hepatic lobe cyst measuring 2.5 and 3.0 cm respectively. Multiple low-density hepatic lesions, too small to accurately characterize. No intrahepatic duct dilatation. Gallbladder and bile ducts: Unremarkable. No stones or inflammation. No biliary dilatation. Pancreas: Unremarkable. No mass or inflammation. Spleen: Unremarkable. Normal in size. No masses. Adrenal glands: Unremarkable. No nodules. Kidneys, ureters and urinary bladder: Nonspecific stranding of right and left perirenal fat. No focal renal lesion or renal stone. Minimal dilatation of the right central renal collecting system. Mild left pelvocaliectasis and/or peripelvic cysts. Mild stranding of the right and left periureteral fat, worse on the left. Mild generalized wall thickening of the urinary bladder, likely secondary to underdistention. Cystitis is not excluded. Reproductive: Unremarkable prostate. GI tract: Unremarkable. Normal in caliber. No sign of mass or inflammation. Normal appendix. Vasculature: Abdominal aorta is normal in caliber. Lymph nodes: No lymphadenopathy. Peritoneum: Unremarkable. No sign of mass or infiltration. No free air or significant free fluid. Abdominal Wall: No abdominal wall mass or hernia. Bones: Mild degenerative spondylosis of the lumbar spine. No fracture or suspicious bone lesion. IMPRESSION: 1. No conclusive etiology of hematuria identified. 2. There is nonspecific stranding of bilateral perirenal and periureteral fat, worse on the left. This may be secondary to recently passed stone as well as renal tract infection. 3. Minimal dilatation of the central right renal collecting system and mild left pelvocaliectasis and/or peripelvic cysts. These changes could be better characterized with contrast-enhanced CT. 4. Hepatic cysts and multiple hepatic low-density lesions, too small to accurately characterize. If the patient is at low risk of all hepatic malignancy then no routine imaging follow-up is recommended. If the patient has had increased risk of hepatic malignancy (such as known primary malignancy with a propensity to metastasize to the liver, cirrhosis, and/or other hepatic risk factors including hepatitis, nonalcoholic steatohepatitis, alcoholism, sclerosing cholangitis, primary biliary cirrhosis, choledochal cysts, hemochromatosis and other hereditary hepatic conditions, and anabolic steroid use.) then follow-up MRI should be performed in 3-6 months. Please note that all CT scans at this facility use dose modulation, iterative reconstruction, and/or weight-based dosing when appropriate to reduce radiation dose to as low as reasonably achievable. Dictated by Ramsey Albarran MD @ 08/04/2024 1:07:57 PM (Electronically Signed)
== END 2024-08-03 10:46 | disposition home or self-care (01) ==
LOC: CT 10:45
PROVIDERS: PCP Internal Medicine; Visit Provider Internal Medicine
DX: R31.9 Hematuria, unspecified (principal); K76.89 Other specified diseases of liver; K76.9 Liver disease, unspecified
CPT/HCPCS: 74176

== ENCOUNTER 2024-08-29 10:45 | Outpatient (CLI) | payer MEDICARE, SELFPAY | END 2024-08-29 10:46 | disposition home or self-care (01) | LOC: NFLDREF 09-01 08:05 | PROVIDERS: PCP Internal Medicine; Referring Provider Internal Medicine; Visit Provider Internal Medicine | DX: N32.81 Overactive bladder (principal); R31.9 Hematuria, unspecified | CPT/HCPCS: 87086 ==

== ENCOUNTER 2024-10-02 11:08 | Day surgery (SDC) | payer MEDICARE, SELFPAY ==
[2024-10-02] VITALS (28 sets, daily range): BP systolic 100–161; BP diastolic 56–97; PULSE 42–60; RESP 11–18; TEMP 35.4–37.2; O2SAT 94–100; BMI 34.5
--- OUTSIDE RECORDS SUMMARY | 2024-10-02 11:11 | XMS_ITS | Clinical Summary ---
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 Gender Identity Not on file Sexual Orientation Not on file Obstetrics History Last Filed Vital Signs Vital Sign Reading Time Taken Comments Blood Pressure 139/81 12/29/2021 9:44 AM CDT Pulse 81 12/29/2021 9:44 AM CDT Temperature - - Respiratory Rate 18 12/29/2021 9:44 AM CDT Oxygen Saturation 96% 12/29/2021 9: 44 AM CDT Inhaled Oxygen Concentration - - Weight 105.3 kg (232 lb 3.2 oz) 12/29/2021 9:44 AM CDT Height - - Body Mass Index - - Plan of Treatment Health Maintenance Due Date Last Done Comments Tdap 1957 Depression screening for age 12+ 1958 BMI (ht and wt on same day) for age 18+ 1964 Hepatitis C screening for ag e 18-79 1964 Pneumococcal series for age 50+ (1 of 1 - PCV) 1996 Zoster (shingles) series for age 50+ (1 of 2) 1996 Medicare Wellness for age 65+ 2011 Tetanus booster 08/30/2012 08/30/2002 RSV vaccine for adults or (1 - 1-dose 75+ series) 2021 COVID-19 vaccine series ( season) 2024 01/27/2022, 06/03/2021, 11/09/2020, Additional history exists Influenza for age 65+ 04/30/2024 Insurance [facility] MEDICARE ADVANTAGE MR Care Teams Community Service Coordinator Relationship Specialty Start Date End Date Sixto Barros MD [address] [place] [address] PCP - General Internal Medicine 09/01/21
--- OUTSIDE RECORDS SUMMARY | 2024-10-02 11:11 | XMS_ITS | Clinical Summary ---
Author Organization [facility] Address [address] [place] [address] Care Team Providers Care Performing Arts Technicians Name Role Phone Sixto Barros MD Primary [...] VACCINE (1 - 1-dose 75+ series) 2021 COVID-19 Vaccine ( season) 2024 06/16/2022, 01/27/2022, 06/03/2021, Additional history exists INFLUENZA VACCINE (#1) 2024 , 06/26/2021, 06/12/2020, Additional history exists PHQ-2 (once per calendar year) 2024 COLONOSCOPY 07/02/2027 07/02/2022, 07/02/2022 COLORECTAL CANCER SCREENING 07/02/2027 DTAP/TDAP/TD IMMUNIZATION (3 - Td or Tdap) 03/13/2031 03/13/2021, 03/18/2012, 07/12/2003, Additional history exists Pneumococcal Vaccine: 50+ Years Completed 04/22/2015, 03/18/2012, 09/30/2004 ZOSTER IMMUNIZATION [...] * COLONOSCOPY (07/02/2022 9:59 AM CDT) COLONOSCOPY [place] [address] [address] [place], [place] [address] Patient Name: Earl Matos Procedure Date: 07/02/2022 9:59 AM Date of : 1945 Admit Type: Outpatient Age: 77 Room: [place] [address] Note Status: Finalized Attending MD: ANASTASIA CLAUDIO [...] a fistulotomy. Procedure Code(s): --- Professional --- 76914, Colonoscopy, flexible; with removal of tumor(s), polyp(s), or other lesion(s) by snare technique Diagnosis Code(s): --- Professional --- K63.5, Polyp of colon Z12.11, Encounter for screening for malignant neoplasm of colon K60.3, Anal fistula K64.8, Other hemorrhoids CPT copyright 2020 [employer]. All rights reserved. The codes documented in this report are preliminary and upon tissue recovery technician review may be revised to meet current [...] Health Maintenance Insurance [employer] MEDICARE Care Teams Performing Arts Technicians Relationship Specialty Start Date End Date Sixto Barros MD [facility] [address] [place] [address] PCP - General Emergency Medicine 07/02/22
--- OUTSIDE RECORDS SUMMARY | 2024-10-02 11:11 | XMS_ITS | Referral Summary ---
Author Organization [facility] Address [address] [place] [address] Care Team Providers Care Mohs Surgeon Name Role Phone Sixto Barros MD Primary [...] Results * COLONOSCOPY (07/02/2022 9:59 AM CDT) [facility] COLONOSCOPY [place] [address] [place] [address] Patient Name: Earl Matos Procedure Date: 07/02/2022 9:59 AM Date of : 1945 Admit Type: Outpatient Age: 77 Room: [place] [address] Note Status: Finalized Attending MD: ANASTASIA CLAUDIO [...] a fistulotomy. 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 All rights reserved. The codes documented in this report are preliminary and upon hospital coder review may be revised to meet current [...] Most Recently Relevant to Health Maintenance Insurance [facility] MEDICARE Care Teams Mohs Surgeon Relationship Specialty Start Date End Date Sixto Barros MD [facility] [address] [place] [address] PCP - General Emergency Medicine 07/02/22
--- NOTE | 2024-10-02 11:52 | W.PM.H&PU ---
History & Physical Update History & Physical Update H&P Reviewed and patient assessed: No changes noted
[2024-10-02] MEDS: ACETAMINOPHEN 500 MG TABLET 1000 MG PO ×3 (12:08→23:20)
[2024-10-02] MEDS: OXYCODONE (CR) 10 MG TAB.ER.12H PO (12:08)
[2024-10-02] MEDS: LACTATED RINGERS 1000 ML 1,000 ML 100 ML IV (12:15)
[2024-10-02] MEDS: SODIUM CHLORIDE 0.9 % (FLUSH) 10 ML SYRINGE IVF (12:15)
[2024-10-02] MEDS: fentaNYL 100 MCG/2 ML inj IVP (12:37)
[2024-10-02] MEDS: MIDAZOLAM HCL 1 MG/ML inj IVP (12:37)
--- NOTE | 2024-10-02 12:50 | SUR.PREOP ---
TIME?OUT:?1236 PT/RN/MDA?VERIFICATION?OF?SURGICAL?SITE,?PROCEDURE,?AND?CONSENT OBTAINED?PRIOR?TO?INVASIVE?PROCEDURE. all in agreement
[2024-10-02] MEDS: CEFAZOLIN 2 GM in 0.9 % SODIUM CHLORIDE Mini-bag 100 ML IVPB ×2 (13:00→19:51)
[2024-10-02] MEDS: TRANEXAMIC ACID 100 MG/ML INJ 1000 MG IV (13:05)
--- NOTE | 2024-10-02 13:19 | W.PM.NB ---
Nerve Block Nerve Block Time Seen by Provider: 12:34 Date Seen: 10/02/24 Type of block requested by surgeon for post-operative analgesia: adductor canal Side: right Time out performed: Yes Verification of patient name: Yes Verification of date of : Yes Site marking: site marked Name of person performing procedure: Gerardo Continuous monitoring Was continuous monitoring of O2 sat, B/P, medical case manager, recorded every 15 minutes?: Yes Procedure Checklist: sterile prep, needles and gloves Ultrasound guided. Images saved: Yes Medications given in 5ml increments after negative aspiration: Marcaine %: 0.25 mL: 15 Needle gauge: 20 Precedex (mcg): 25 Patient tolerated procedure well: Yes Block Charges Block Charge (with Pro Fee): Femoral Nerve Use of Ultrasound Machine for Block: Yes- US Guidance/pain block
--- NOTE | 2024-10-02 13:19 | W.PM.NB ---
Nerve Block Nerve Block Time Seen by Provider: 12:34 Date Seen: 10/02/24 Type of block requested by surgeon for post-operative analgesia: geniculars Side: right Time out performed: Yes Verification of patient name: Yes Verification of date of : Yes Site marking: site marked Name of person performing procedure: Gerardo Continuous monitoring Was continuous monitoring of O2 sat, B/P, manager administrative services, recorded every 15 minutes?: Yes Procedure Checklist: sterile prep, needles and gloves Ultrasound guided. Images saved: Yes Medications given in 5ml increments after negative aspiration: Marcaine %: 0.25 mL: 9 Needle gauge: 25 Patient tolerated procedure well: Yes Block Charges Block Charge (with Pro Fee): Genicular Nerve Block
[2024-10-02] MEDS: LACTATED RINGERS 500 ML 500 ML 125 ML IV (13:23)
--- NOTE | 2024-10-02 14:38 | PM.ORPRC ---
Procedure Note Date of procedure: 10/02/24 Procedure: PREOPERATIVE DIAGNOSIS: 1. Right knee osteoarthritis, primary, severe POSTOPERATIVE DIAGNOSIS: 1. Right knee osteoarthritis, primary, severe PROCEDURE: 1. Right total knee arthroplasty - subvastus SURGEON: Gabriel Cassidy MD. BAKERY MACHINE MECHANIC SUPERVISOR: Shin Kovacs PA-C - Of note, a skilled civil engineering assistant was critical for this case to aid in patient positioning, tissue retraction, limb manipulation/positioning, and closure. ANESTHESIA: Spinal anesthetic IMPLANTS: DePuy J&J all cemented TKA - Attune PS femur size 8 Size 7 tibia 8 mm poly spacer 41mm patella TOURNIQUET: 90 min at 300 torr EBL: 50 ml COMPLICATIONS: None evident INDICATIONS: The patient is a pleasant 79-year-old male who has experienced severe right knee pain and difficulty bearing weight. Workup included x-rays which revealed severe osteoarthrosis in the knee. Given the deformity, the dysfunction, and the pain, as well as the failure of nonoperative management, recommendation was made for surgery. FINDINGS: Full-thickness chondral loss diffusely throughout the medial and patellofemoral compartments. To lesser degree lateral compartment. Large effusion upon entering the joint. Degenerative medial greater than lateral meniscus pathology. DESCRIPTION OF PROCEDURE: Following a thorough discussion of risks, benefits, and alternatives consent was obtained and the right knee was marked. The patient was brought to the operating room and placed supine on the operating table. Induction of anesthesia was undertaken. 2 g IV Ancef and 1 g tranexamic acid was administered within 1 hr of incision preoperatively. Proper time-out was performed identifying proper patient, site, procedure. The operative extremity was prepped and draped in the appropriate sterile fashion using ChloraPrep after the patient was positioned supine with all bony prominences well padded. A longitudinal, anterior, midline skin incision was made starting approximately 3cm proximal to the superior pole of the patella and advanced distal to the tibial tubercle. A subvastus approach was utilized. A medial subperiosteal sleeve was created with knife, villarreal elevator and curved osteotome. The retropatellar fatpad was resected and the synovium in the suprapatellar pouch excised to visualize the anterior femoral cortex. Femoral preparation was performed via an intramedullary guide. Step drill allowed access into the femoral canal. The distal cutting guide was placed with 5? of valgus and 11 mm cut on the distal femur due to a 7?+ flexion contracture. Femur was sized using a anterior referencing guide in 3? of external rotation. This found have a best fit with the sizing noted above. The 4 in 1 cutting block was then placed, and the distal femur shaped accordingly. The box cut was then created and the trial implant inserted to confirm appropriate fit. We turned our attention to the proximal tibia. Extramedullary guide was utilized for cutting with the goal of being 90 degree cut from the mechanical axis of the tibia in the varus/valgus plane utilizing tibial crest as the primary alignment. Initially a 2 mm resection was performed from the medial tibial plateau. Ultimately, balancing was achieved in both flexion and extension in both varus and valgus. The knee was able to achieve full extension as well comfortably. The patella was initially measured and found have a thickness of 26 mm. It was resected back to approximately 15 mm. It was sized to be a best fit with as noted above. This was drilled, trial placed. All trials were placed and found to have an excellent stability and balance. At this stage, trial implants were removed, the knee was thoroughly irrigated with normal saline, and the cement was mixed. After irrigation, the knee was thoroughly dried, and cement placed, with the real tibial and femoral implants placed along with the patella. Trial poly spacer was placed and confirmed to have excellent range of motion and full extension, and the real poly spacer opened and inserted. All extra cement was removed, and a 3 min Betadine soak performed. Finally, a final irrigation round with normal saline was performed. Closure performed with 0 Vicryl and #0 Stratafix for the quad tendon/retinaculum. 2-0 Vicryl for the subcutaneous and 4-0 Stratafix for subcuticular closure. Dressings were applied and the patient was awoken from anesthesia after the tourniquet deflated and transferred the PACU in stable condition. A skilled civil engineering assistant was critical for this case to aid in patient positioning, tissue retraction, bone exposure, limb manipulation/positioning, patient safety, and closure. PLAN: 1. Weight bear as tolerated operative extremity. 2. 23 hr perioperative antibiotics. 3. Ice. 4. PT/OT consults for ambulation assistance/mobility education. 5. Social work consult for discharge planning. 6. DVT prophylaxis with at SCDs and aspirin twice daily.
--- NOTE | 2024-10-02 14:55 | CRLHL7_ITS ---
For Patients: As a result of the Cures Act, medical imaging exams and procedure reports are released immediately into your electronic medical record. You may view this report before your referring provider. If you have questions, please contact your health care provider. Indication: POST OP KNEE Technique: Two views right knee Findings/Impression: Hardware from a right total knee arthroplasty is in satisfactory position. Bone alignment is normal. No sign of acute fracture. Postop changes are within normal limits. Dictated by Fox Huang MD @ 10/03/2024 8:23:45 AM (Electronically Signed)
--- NOTE | 2024-10-02 15:30 | P.ANES_ITS ---
Anesthesia Charges Start Date/Time Anesthesia Start Date: 10/02/24 Anesthesia Start Time: 12:51 Stop Date/Time Anesthesia Stop Date: 10/02/24 Anesthesia Stop Time: 15:27 Coding CPT Codes CPT Codes: ANESTH KNEE ARTHROPLASTY - 97891 ([id number]) P2 - PATIENT W/MILD SYST DISEASE, QK - LABORER YARD 2-4 CNCRNT ANES PROC, QX - SYSTEMS OPERATOR SVC W/ MD MED DIRECTION
--- NOTE | 2024-10-02 15:30 | W.ANESCHARGE ---
Anesthesia Charges Start Date/Time Anesthesia Start Date: 10/02/24 Anesthesia Start Time: 12:51 Stop Date/Time Anesthesia Stop Date: 10/02/24 Anesthesia Stop Time: 15:27 Coding CPT Codes CPT Codes: ANESTH KNEE ARTHROPLASTY - 95374 ([id number]) P2 - PATIENT W/MILD SYST DISEASE, QK - PIZZA MAKER 2-4 CNCRNT ANES PROC, QX - ROBOTICS SPECIALIST SVC W/ MD MED DIRECTION
--- NOTE | 2024-10-02 16:32 | P.IMCN_ITS ---
Date of Consult Patient: [facility] Patient Consult date: 10/02/24 Requesting Physician: Orthopedics Primary Care Provider: Sixto Barros MD Consult Narrative Reason for consult: bradycardia, vision changes Narrative: Earl Gentile is a 79 year old male with a h/o hyperlipidemia and obesity who underwent an elective right total hip arthroplasty today by Dr. Cassidy. His , Shahbaz, is in the room with him. Postoperatively he is noted to be bradycardic and complains of wavy vision. He notes his vision is wavy when looking straight ahead with both eyes. When he uses just one eye (either eye), the waviness is less. It is also less if he turns his head to either side. He denies headache or other vision changes. He reports a h/o vertigo 1-2 years ago. He denies any problems with vision such as this with vertigo or before going into surgery. He notes that his vision is already starting to get better. Review of Systems Status of ROS: Reports: 6 or more systems reviewed and unremarkable except as noted in History and below [facility] Medical History (Updated 10/02/24 @ 20:50 by Mary Sorto MD) Osteoarthritis of right knee ?M17.11 - Unilateral primary osteoarthritis, right knee (ICD-10) Obesity with body mass index greater than 30 ?E66.9 - Obesity, unspecified (ICD-10) Borderline hyperlipidemia (03/11/10) ?E78.5 - Hyperlipidemia, unspecified (ICD-10) Diverticulosis of intestine (03/11/10) ?K57.90 - Diverticulosis of intestine, part unspecified, without perforation or abscess without bleeding (ICD-10) Prediabetes ?R73.03 - Prediabetes (ICD-10) 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 - Anal fistula (ICD-10) Perianal abscess ?K61.0 - Anal abscess (ICD-10) Hematuria ?R31.9 - Hematuria, unspecified (ICD-10) Otitis media ?H66.90 - Otitis media, unspecified, unspecified ear (ICD-10) Recurrent knee pain ?M25.569 - Pain in unspecified knee (ICD-10) Subconjunctival hemorrhage ?H11.30 - Conjunctival hemorrhage, unspecified eye (ICD-10) Left leg numbness ?R20.0 - Anesthesia of skin (ICD-10) Health care directive on file ?Z78.9 - Other specified health status (ICD-10) Overactive bladder ?N32.81 - Overactive bladder (ICD-10) Hearing loss ?H91.90 - Unspecified hearing loss, unspecified ear (ICD-10) Hemorrhoids ?K64.9 - Unspecified hemorrhoids (ICD-10) Surgical History (Updated 10/02/24 @ 20:42 by Mary oSrto MD) Status post total right knee replacement ?Z96.651 - Presence of right artificial knee joint (ICD-10) History of total right knee replacement (10/02/24) ?Z96.651 - Presence of right artificial knee joint (ICD-10) Social History (Updated 10/02/24 @ 16:45 by Mary Sorto MD) Narrative: . Lives independently. Former smoker-quit 1985. No alcohol use. What is your current living situation?: I presently have a place to live Problems where you live: no known problems In the past 12 months, utilities in danger of being shut off: no In past 12 months, lack of transportation kept you from medical appts, meetings, work, or getting things needed for daily living: no In the past 12 mos, have been you worried that your food would run out before you had money to buy more?: never true In the past 12 mos, the food you bought just didn't last and you didn't have money to buy more?: never true Highest level of school completed/degree received: Bachelor's degree Smoking Status: Never smoker Do you use any of these nicotine containing products: None Second hand tobacco smoke exposure: No How often do you have a drink containing alcohol: never How often do you have six or more drinks on one occasion: Never AUDIT-C Alcohol total score: 0 Non-prescribed substance use: denies use Caffeine: Yes (coffee) How often does anyone, including family, friends and others, physically hurt you : never How often does anyone, including family, friends and others, insult or talk down to you: never How often does anyone, including family, friends and others, threaten you with harm: never How often does anyone, including family, friends and others, scream or curse at you: never service: No Meds Home Medications and Allergies Home Medications ?Medication ?Instructions ?Recorded ?Confirmed ?Type cholecalciferol (vitamin D3) 25 25 mcg PO DAILY 04/06/23 10/02/24 History mcg (1,000 unit) capsule ascorbate calcium (vitamin C) 500 500 mg PO DAILY 03/09/24 10/02/24 History mg tablet Allergies Allergy/AdvReac Type Severity Reaction Status Date / Time No Known Allergies Allergy Verified 09/19/24 08:32 Exam Narrative: Exam Narrative: General: No acute distress. Awake alert oriented x3. HEENT: Normocephalic atraumatic, pupils equally round and reactive to light and accommodation. Oropharynx clear. Mucous membranes are moist. No cervical lymphadenopathy, thyromegaly or carotid bruits. No JVD. Cardiovascular: Regular rate and rhythm. No murmurs, gallops, or rubs. Chest: No increased work of breathing. Clear to auscultation bilaterally. No crackles or wheezes. Abdomen: Bowel sounds present. Soft, nondistended, nontender. No hepatosplenomegaly or masses. Extremities: Right knee bandage is clean, dry, and intact. No edema, no cyanosis or clubbing. Skin: No jaundice, no pallor, no rashes on visible skin. Neuro: There are no focal deficits. Romberg is negative. Patient reports wavy vision. Cranial nerves 2-12 are otherwise intact. Extraocular movements are full. No nystagmus. No facial asymmetry. Tongue is midline. Peripheral vision and vision are grossly intact. Strength is 5/5 in both upper extremities. Lower extremities were not tested due to recent spinal anesthesia. Light touch sensation is intact in face, body and upper extremities. Coordination is intact in upper extremities. Const: Vital Signs, click to edit/add: Vital Signs - 24 hr 10/02/24 12:06 10/02/24 12:35 10/02/24 15:22 Temperature 99.0 F 97.6 F Pulse Rate 60 60 49 L Respiratory Rate 16 16 16 Blood Pressure 142/71 H 135/70 100/56 L Pulse Oximetry 96 95 95 Oxygen Delivery Me thod Room Air Nasal Cannula Room Air Oxygen Flow Rate 2 10/02/24 15:25 10/02/24 15:30 10/02/24 15:35 Temperature Pulse Rate 47 L 48 L 44 L Respiratory Rate 14 13 12 Blood Pressure 103/58 L 106/56 L 107/62 Pulse Oximetry 94 95 95 Oxygen Delivery Me thod Oxygen Flow Rate 10/02/24 15:40 10/02/24 15:45 10/02/24 15:50 Temperature 97.0 F L Pulse Rate 46 L 43 L 44 L Respiratory Rate 12 11 L 12 Blood Pressure 107/63 111/64 109/64 Pulse Oximetry 97 94 97 Oxygen Delivery Me thod Oxygen Flow Rate ECG Attestation: I personally reviewed and interpreted this ECG as follows: ( 2024 4:26 p.m. EKG: marked sinus bradycardia, 44 beats per minute, left axis deviation, right bundle-branch block, minimal voltage criteria for LVH, maybe normal variant.) Assessment and Plan Assessment and plan (1) Status post total right knee replacement: Problem comment: - 10/02/24 Dr. Cassidy - routine post op cares - VTE prophylaxis with BID low dose aspirin Status: Acute (2) Osteoarthritis of right knee: Problem comment: Severe Status: Chronic (3) Vision changes: Problem comment: - improving, has h/o vertigo - discussed with Dr. Eduardo from [place] [facility] who agreed that this was unlikely stroke and did not need imaging unless other neurologic symptoms arise - neurochecks Status: Acute (4) Sinus bradycardia: Problem comment: - was dizzy, but that has resolved, BP stable - suspect due to anesthesia medications, medications reviewed, not on any medications at home to control HR - give IVF bolus - EKG done (above), monitor on tele Status: Acute (5) Borderline hyperlipidemia: Problem comment: - diet controlled Status: Chronic
[2024-10-02] MEDS: LACTATED RINGERS 500 ML 500 ML IV (18:12)
--- NOTE | 2024-10-02 19:47 | PC.NURSE ---
End of shift - Pt arrived from PACU at approximately 1555. Alert, oriented, cooperative. Pt reported feeling nothing in bilat LE, weak movement of toes noted by RN. Pt observed to be bradycardic upon arrival from PACU and reported change in vision. Pt reported dizziness and stated that objects he was looking at appeared to move around. MD notified, EKG performed per MD, new orders given and executed by RN. Bradycardia improved slightly by end of shift and pt reported improvement in vision change. Family at bedside, pt denied pain, SOB, n/v. Tolerating RA, regular diet/fluids. Ice pack on surgical site, dressing CDI and pedal pulse present. Appears to be resting in bed with call light within reach.
[2024-10-02] MEDS: LACTATED RINGERS 1000 ML 1,000 ML 75 ML IV (21:00)
[2024-10-02] MEDS: ASPIRIN 81 MG TABLET EC PO (21:46)
[2024-10-02] MEDS: SENNOSIDES 1 TAB TABLET 2 TAB PO (21:46)
[2024-10-03] MEDS: CEFAZOLIN 2 GM in 0.9 % SODIUM CHLORIDE Mini-bag 100 ML IVPB (02:41)
[2024-10-03] MEDS: OXYCODONE 5 MG TABLET PO ×3 (02:43→08:24)
[2024-10-03 02:44] VITALS: BP 156/70; PULSE 57; RESP 20; TEMP 35.8; O2SAT 99
[2024-10-03 03:55] LABS: Basophils Absolute Auto 0.02 K/uL (0.00-0.30); Basophils Percent Auto 0.3 % (0.0-3.0); Eosinophils Absolute Auto 0.11 K/uL (0.00-0.50); Eosinophils Percent Auto 1.7 % (0.0-7.0); Hematocrit 37.1 % (37.0-53.0); Hemoglobin* 12.8 gm/dL (13.5-17.5); Immature Granulocytes Abs Auto 0.01 K/uL (0.00-0.30); Immature Granulocytes Pct Auto 0.2 %; Mean Corpuscular HGB Conc 35 gm/dL (32-36); Mean Corpuscular Hemoglobin 31 pg (26-34); Mean Corpuscular Volume 89 fL (80-100); Monocytes Percent Auto 10.4 % (0.0-11.0); Neutrophils Percent Auto 81.4 % (42.0-72.0); Platelet Count* 110 K/uL (140-440); RDW Coefficient of Variation % 12.7 % (11.5-15.5); Red Blood Count 4.19 m/uL (4.30-5.90); White Blood Count* 6.33 K/uL (4.50-11.00)
[2024-10-03 03:59] LABS: Slide Review Reflex No
[2024-10-03 04:08] LABS: Potassium* 4.6 mmol/L (3.6-5.1)
[2024-10-03 04:10] LABS: Creatinine* 0.8 mg/dL (0.5-1.5); Est. Creatinine Clearance* 62.86; Estimated Glomerular Filt Rate 91 ml/min
[2024-10-03 04:11] LABS: Blood Urea Nitrogen* 13 mg/dL (7-30)
[2024-10-03 04:23] LABS: Sodium* 136 mmol/L (135-149)
[2024-10-03 04:25] LABS: Troponin I* < 0.01 ng/mL (0.01-0.04)
--- NOTE | 2024-10-03 05:20 | PC.NURSE ---
[id number]: Patient pleasant and cooperative. Neuros unremarkable. Patient reports vision is back to normal. Dressing to R. knee C/D/I. A1/walker. Rates pain 2-4 with PRN oxycodone x1 and active ice for relief. Patient c/o sharp chest pain at 0230. EKG read NSR and MD updated. Trops ordered and came back WNL. Eating and voiding. Denies N/V.
[2024-10-03] MEDS: ACETAMINOPHEN 500 MG TABLET 1000 MG PO (06:23)
[2024-10-03 07:00] VITALS: BP 149/68; PULSE 64; RESP 18; TEMP 36.6; O2SAT 97; O2SAT 99
--- NOTE | 2024-10-03 08:11 | P.ORPN_ITS ---
Subjective Subjective Date Seen: 10/03/24 Principal diagnosis: Status postop day 1 right total knee arthroplasty Interval history: Patient reports doing okay this morning. Acute events yesterday evening included bradycardia and vision disturbances. He feels these have resolved. He believes it may have been some vertigo. Some nausea associated. No vomiting. Also had chest pain early this morning; labs drawn as well as EKG without any abnormal findings. Pain managed with scheduled and PRN medications, ice. DVT prophylaxis: 81 mg aspirin by mouth twice daily, SCDs, walking. Denies fevers, chills, aches, vomiting, CP, SOB/GALLAGHER, or lightheadedness. Passing flatus. Ortho Exam Narrative Exam Narrative: General: Well-developed, well-nourished, A&Ox 3, no apparent acute distress. and daughter in room. Nurse present for morning vitals. -Patient appears comfortable; no apparent acute distress -Alert and oriented times 3 -Operative knee moderately swollen; soft tissues supple; no ecchymosis; no erythematous streaking. Warmth appropriate -Surgical dressing clean, dry, intact; no drainage -Bilateral calfs soft; no significant swelling, edema, tenderness, erythema, discoloration, warmth, or palpable cords -2+ DP/PT pulses, intact dermatomes and myotomes distally (5/5 strength) Const Vital Signs, click to edit/add: Vital Signs - 24 hr 10/02/24 12:06 10/02/24 12:35 10/02/24 15:22 Temperature 99.0 F 97.6 F Pulse Rate 60 60 49 L Pulse Rate [Left Pulse Oximeter] Respiratory Rate 16 16 16 Blood Pressure 142/71 H 135/70 100/56 L Blood Pressure [Left Arm] Pulse Oximetry 96 95 95 Oxygen Delivery Method Room Air Nasal Cannula Room Air Oxygen Flow Rate 2 10/02/24 15:25 10/02/24 15:30 10/02/24 15:35 Temperature Pulse Rate 47 L 48 L 44 L Pulse Rate [Left Pulse Oximeter] Respiratory Rate 14 13 12 Blood Pressure 103/58 L 106/56 L 107/62 Blood Pressure [Left Arm] Pulse Oximetry 94 95 95 Oxygen Delivery Method Oxygen Flow Rate 10/02/24 15:40 10/02/24 15:45 10/02/24 15:50 Temperature 97.0 F L Pulse Rate 46 L 43 L 44 L Pulse Rate [Left Pulse Oximeter] Respiratory Rate 12 11 L 12 Blood Pressure 107/63 111/64 109/64 Blood Pressure [Left Arm] Pulse Oximetry 97 94 97 Oxygen Delivery Method Oxygen Flow Rate 10/02/24 15:55 10/02/24 16:10 10/02/24 16:25 Temperature 95.9 F L Pulse Rate 43 L 45 L 42 L Pulse Rate [Left Pulse Oximeter] Respiratory Rate 16 16 16 Blood Pressure 122/68 124/67 136/71 Blood Pressure [Left Arm] Pulse Oximetry 96 100 Oxygen Delivery Method Room Air Oxygen Flow Rate 10/02/24 16:40 10/02/24 16:55 10/02/24 17:25 Temperature 95.8 F L Pulse Rate 42 L 48 L 51 L Pulse Rate [Left Pulse Oximeter] Respiratory Rate 16 16 16 Blood Pressure 142/63 H 126/97 H 142/83 H Blood Pressure [Left Arm] Pulse Oximetry 100 97 97 Oxygen Delivery Method Oxygen Flow Rate 10/02/24 17:51 10/02/24 17:55 10/02/24 18:32 Temperature 95.9 F L 96.0 F L Pulse Rate 43 L 58 L Pulse Rate [Left Pulse Oximeter] 58 L Respiratory Rate 16 16 Blood Pressure 122/68 137/74 Blood Pressure [Left Arm] Pulse Oximetry 96 99 Oxygen Delivery Method Room Air Oxygen Flow Rate 10/02/24 18:55 10/02/24 19:46 10/02/24 19:55 Temperature 96.1 F L Pulse Rate 58 L 60 Pulse Rate [Left Pulse Oximeter] 60 Respiratory Rate 18 18 Blood Pressure 137/80 149/68 H Blood Pressure [Left Arm] Pulse Oximetry 96 98 Oxygen Delivery Method Room Air Room Air Oxygen Flow Rate 10/02/24 20:55 10/02/24 21:33 10/02/24 21:35 Temperature 96.5 F L Pulse Rate 52 L Pulse Rate [Left Pulse Oximeter] Respiratory Rate 16 16 Blood Pressure 129/59 L Blood Pressure [Left Arm] Pulse Oximetry 99 99 99 Oxygen Delivery Method Room Air Room Air Oxygen Flow Rate 10/02/24 21:55 10/02/24 22:48 10/02/24 22:49 Temperature 97.1 F L 97.1 F L Pulse Rate 57 L 53 L Pulse Rate [Left Pulse Oximeter] 57 L Respiratory Rate 16 16 Blood Pressure 161/68 H Blood Pressure [Left Arm] 161/68 H Pulse Oximetry 97 97 Oxygen Delivery Method Room Air Room Air Oxygen Flow Rate 10/02/24 22:51 10/03/24 02:44 Temperature 96.4 F L Pulse Rate Pulse Rate [Left Pulse Oximeter] 53 L 57 L Respiratory Rate 20 Blood Pressure Blood Pressure [Left Arm] 156/70 H Pulse Oximetry 99 Oxygen Delivery Method Room Air Oxygen Flow Rate Assessment and Plan Assessment and plan (1) Status post total right knee replacement: Problem details: - 10/02/24 Dr. Cassidy - routine post op cares - VTE prophylaxis with BID low dose aspirin Status: Acute (2) Osteoarthritis of right knee: Problem details: Severe Status: Chronic (3) Vision changes: Problem details: - improving, has h/o vertigo - discussed with Dr. Eduardo from [place] stroke neurology who agreed that this was unlikely stroke and did not need imaging unless other neurologic symptoms arise - neurochecks Status: Acute (4) Sinus bradycardia: Problem details: - was dizzy, but that has resolved, BP stable - suspect due to anesthesia medications, medications reviewed, not on any medications at home to control HR - give IVF bolus - EKG done (above), monitor on tele Status: Acute (5) Borderline hyperlipidemia: Problem details: - diet controlled Status: Chronic Plan - Complete 23 hour perioperative antibiotics. - PT/OT consult for education and assistance. - Social work consult for discharge planning - Prescribed analgesics as needed - DVT prophylaxis: 81 mg aspirin by mouth twice daily, walking, and SCDs - Anticipation is for discharge to home with family/friends today 10/03/2024 if the patient remains medically stable, pain is controlled, and they are safe with mobilization. Patient has 13 steps in his home, thus PT important to ensure he is safe with stairs especially.
[2024-10-03] MEDS: SENNOSIDES 1 TAB TABLET 2 TAB PO (08:23)
[2024-10-03] MEDS: ASPIRIN 81 MG TABLET EC PO (08:24)
[2024-10-03] MEDS: FINASTERIDE 5 MG TABLET PO (08:24)
--- NOTE | 2024-10-03 11:06 | PC.NURSE ---
Discharge: patient alert and oriented x4. VSS. tolerating a reg. diet. Patient's Dressing to right knee C/D/I. Active ice to op site. Patient using IS indep. 98% on RA. Patient discharged today to home accompanied by spouse and dtr at 1105. Patient's IV removed intact. Discharge instructions given and signed, patient verbalized understanding of instructions. Belongings sheet signed.
== END 2024-10-03 11:05 | disposition home or self-care (01) ==
LOC: OR 11:09 → MEDSURG 11:10
PROVIDERS: PCP Internal Medicine; Visit Provider Orthopaedic Surgery Sports Medicine
PROC: (CPT 27447; principal; 2024-10-02 12:45)
DX: M17.11 Unilateral primary osteoarthritis, right knee (principal); G89.18 Other acute postprocedural pain; R00.1 Bradycardia, unspecified; H53.8 Other visual disturbances; E66.9 Obesity, unspecified; Z68.34 Body mass index [BMI] 34.0-34.9, adult; E78.5 Hyperlipidemia, unspecified; R73.03 Prediabetes
CPT/HCPCS: 27447; 01402; 36415; 64447; 64454; 73560; 76942; 82565; 84132; 84295; 84484; 84520; 85025; 93005; 97110; 97116; 97161; 97165; 97530; 97535; A9270; C1776; J0665; J0690; J2250; J2704; J3010; J7120

== ENCOUNTER 2024-11-22 10:15 | Outpatient (RCR) | payer MEDICARE, SELFPAY ==
--- NOTE | 2024-09-28 17:05 | PT.OPEX ---
[facility] Eval PT [facility] Outpatient Eval Start: 09/28/24 12:07 Freq: Status: Active Protocol: Document 09/28/24 12:09 JAYSHREE (Rec: 09/28/24 17:04 JAYSHREE [id number]) E-signed By Cheikh Mayo DPT Physical Therapy Outpatient Evaluation Insurance Information Recert Due Date 12/27/24 Insurance Name Medicare B Medical Diagnosis R knee oa Treating Diagnosis Rknee pain muscle weakness gait abnormality Referring MD carole yarbrough Subjective Subjective Mark comes into clinic ~ 3 days prior to his R TKA on 10/02. States he has known he is bone on bone for about a year and a half now but it did not really start hurting until the past several months. Finds walking, standing stairs, knee ROM has progressively gotten more challenging. Lives in a house with his who will be his support. HAs about 13 steps with sturdy handrails to get to main level. Has a few bathrooms on main level both tub and walk in showers. Has a fww at home . 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 Patient also has notable objective findings including limited ROM, impaired balance, decreased strength also likely contributing to the problem. Patient is a good candidate for skilled therapy to target deficits described above. Skilled PT intervention is necessary for use of therapeutic exercise manual therapy, neuromuscular re- education, gait training, and therapeutic activity. Functional impairments include difficulty with: walking standing stairs ADLS. See appropriate sections of PT eval for complete list of goals and POC. D/C plan and criteria is for pt to achieve the goals as listed below or until max rehab potential is met. Pt was agreeable with plan of care and goals established. Plan of Care Rehabilitation Potential Good Physical Therapy Goals TKA GOALS STG (within 5-6 weeks ) 1) Pt will improve knee AROM at least 0 to 90 for improved sit to stand transfers 2) Pt will demonstrate negative extensor lag during straight leg raise exercise with ability to complete at least 15 reps with 5 sec hold to improve strength for ambulation 3) Patient will demonstrate/ report ability to walk for 15- 20 minutes w/SPC with pain level <1/10, to allow for community and household ambulation. LTG: (within 8-10 weeks) 1) Pt will be indep with HEP for custodial management of pain/symptoms 2) Pt will improve knee AROM at least 0 to 120 for improved sit to stand transfers 3) Patient will ascend/descend at least 13 steps using single rail and reciprocal pattern to improve ease of mobility at home/community 4) Patient will demonstrate/ report ability to walk for 20- 30 minutes w/o AD with pain level <1/10, to allow for community and household ambulation. Coordination/Communication With Referral Source Treatment Plan/Direct Interventions Gait Training,Joint Mobilization,Manual Therapy, Neuromuscular Re-ed,Self-Care/ Home Management,Therapeutic Activities,Therapeutic Exercises Frequency/Duration 1-2 visits a week for 10- 12 weeks Patient Will Be Discharged From Therapy Independent w/HEP, Independently Progressing Evaluation Billing Untimed Code Treatment Minutes 30 Complexity Low Certification Information Initial Certification Date 09/28/24 Ending Certification Date 12/27/24 Provider Signature Required Yes Provider Signature Shows Agreement With POC & Medical Necessity Physician NPI Number Write NPI# Here Physician Comment/Change : Physician Signature & Date Requested Please Sign/Date Here
--- NOTE | 2024-10-04 14:56 | PT.OPDNX ---
[facility] [place] [facility] Daily Note [facility] Daily Note Start: 09/28/24 12:07 Freq: Status: Active Protocol: Document 10/04/24 07:17 HLA (Rec: 10/04/24 10:32 HLA [id number]) E-signed By Luna Costa, PT, DPT PT OP Daily Progress Note Visit Information Note Type Daily Note,Re-Evaluation Visit Number 2 Insurance Information Recert Due Date 12/27/24 Insurance Name Medicare B Medical Diagnosis R knee oa Treating Diagnosis Rknee pain muscle weakness gait abnormality Referring MD carole yarbrough Subjective Subjective Had TKA 10/02/24, finds he has significant pain but manageable. Car transfer 'went ok.' Didn't do his ex after returning home yesterday. Spouse present and assisting pt post surgery. Pain Comments varies Date of Surgery (If applicable) 10/02/04 Precautions Treatment Precautions/Contraindications edema R LE, tubigrip added, elevate/ice instructed. Home Exercise Home Exercise Comments TKA ex program 3x/day x 10 reps, see below.\Access Code: [email or web address] URL: [email or web address] Date: 10/04/2024 Prepared by: Luna Costa Exercises - Supine Single Leg Ankle Pumps - 3 x daily - 7 x weekly - 10 reps - edema management exercise type - Supine Quadricep Sets - 3 x daily - 7 x weekly - 10 reps - 5 seconds hold - strength exercise type - Supine Short Arc Quad - 3 x daily - 7 x weekly - 10 reps - 5 seconds hold - strength exercise type - Active Straight Leg Raise with Quad Set - 3 x daily - 7 x weekly - 10 reps - 2-3 second hold - strength exercise type - Supine Heel Slide - 3 x daily - 7 x weekly - 10 reps - range of motion exercise type - Supine Isometric Hamstring Set - 3 x daily - 7 x weekly - 10 reps - 5 sec hold - strength exercise type - Seated Knee Flexion Stretch - 3 x daily - 7 x weekly - 10 reps - 5 second hold - range of motion/stretch exercise type - Seated Long Arc Quad - 3 x daily - 7 x weekly - 10 reps - 5 second hold - range of motion/strength exercise type - Seated Passive Knee Extension - 3 x daily - 7 x weekly - 1 reps - 5-15 minutes hold - strength exercise type Patient Education - Safe Practices For Preventing Falls - Going Up and Down Stairs With Two Rails After Surgery - Walker WBAT - Ice Objective Other/Pertinent Objective TURNER Flores knee circumference: mid patella 50 cm 5 cm prox to patella 55 cm 5 cm distal to patella 46 cm Patient Instructed in Risks/Benefits Yes Therapeutic Exercise Therapeutic Exercise Minutes (minutes) 30 Therapeutic Exercise: To Restore Pt was instructed in TKA ex Functional Status program (quad sets, ham sets, ankle pumps, heel slides, SAQ, SLR, seated knee flex/ext and hamstring stretches) , safety , & fall prevention. Pt was instructed in positioning in chair, use of ice/polar care, bed, transfer safety, gt safety with walker, stairs, car transfers and outpatient therapy progression. Access Code: [email or web address] URL: [email or web address] Date: 10/04/2024 Prepared by: Luna Costa Exercises - Supine Single Leg Ankle Pumps - 3 x daily - 7 x weekly - 10 reps - edema management exercise type - Supine Quadricep Sets - 3 x daily - 7 x weekly - 10 reps - 5 seconds hold - strength exercise type - Supine Short Arc Quad - 3 x daily - 7 x weekly - 10 reps - 5 seconds hold - strength exercise type - Active Straight Leg Raise with Quad Set - 3 x daily - 7 x weekly - 10 reps - 2-3 second hold - strength exercise type - Supine Heel Slide - 3 x daily - 7 x weekly - 10 reps - range of motion exercise type - Supine Isometric Hamstring Set - 3 x daily - 7 x weekly - 10 reps - 5 sec hold - strength exercise type - Seated Knee Flexion Stretch - 3 x daily - 7 x weekly - 10 reps - 5 second hold - range of motion/stretch exercise type - Seated Long Arc Quad - 3 x daily - 7 x weekly - 10 reps - 5 second hold - range of motion/strength exercise type - Seated Passive Knee Extension - 3 x daily - 7 x weekly - 1 reps - 5-15 minutes hold - strength exercise type Patient Education - Safe Practices For Preventing Falls - Going Up and Down Stairs With Two Rails After Surgery - Walker WBAT - Ice Therapeutic Activity Therapeutic Activities Comments sit<>stand sba sit<>supine sba car transfers min assist Manual Therapy Techniques Manual Therapy Minutes (minutes) 10 Manual Therapy Techniques STM post calf and med/lat knee to reduce edema, increase ROM , reduce pain. Gait & Stair Training Gait Training/Stairs Minutes (minutes) 8 Gait & Stair Training Comments 150 feet x 2 with ww, sba, vc posture, hip ext, heel toe gt. VC pacing, activity level for home. 3 stairs step to pattern rails , min assist Neuromuscular Re-Ed Neuromuscular Reeducation Comments sitting good static/dynamic standing fair static/dynamic with walker Treatment Minutes Untimed Code Treatment Minutes 10 Timed Code Treatment Minutes 48 Total Treatment Time 58 Billing Units Manual Therapy Units 1 Therapeutic Exercise Units 2 Re-Evaluation Units 1 Assessment/Impression Assessment/Impression Pt is a 79 yr old male is s/p R TKA at [facility] on . Pt presents with edema R knee, surgical dressing intact . He transfers sba, amb with stiff gt, vc posture and heel toe patterning with walker. Ex performed with cues, reviewed x 2. AAROM R knee 10-92 by end of session with overpressure. Added tubigrip, pt to use his ice machine at home, elevate. Pt was instructed and assisted in TKA program, safety, fall prevention. Pt was instructed in positioning in chair, use of ice/polar care, bed, transfer safety, gt safety with walker, stairs, car transfers and outpatient therapy progression plan. Due to weakness, impaired ROM, impaired transfers and edema/ pain, post TKA, he will benefit from twice weekly PT to recover his ind, ROM and strength, return to community distance amb. Plan of Care Physical Therapy Goals TKA GOALS STG (within 5-6 weeks ) 1) Pt will improve knee AROM at least 0 to 90 for improved sit to stand transfers 2) Pt will demonstrate negative extensor lag during straight leg raise exercise with ability to complete at least 15 reps with 5 sec hold to improve strength for ambulation 3) Patient will demonstrate/ report ability to walk for 15- 20 minutes w/SPC with pain level <1/10, to allow for community and household ambulation. LTG: (within 8-10 weeks) 1) Pt will be indep with HEP for pain management nurse practitioner management of pain/symptoms 2) Pt will improve knee AROM at least 0 to 120 for improved sit to stand transfers 3) Patient will ascend/descend at least 13 steps using single rail and reciprocal pattern to improve ease of mobility at home/community 4) Patient will demonstrate/ report ability to walk for 20- 30 minutes w/o AD with pain level <1/10, to allow for community and household ambulation. Daily Plan of Care Continue per POC
== END 2024-11-22 11:40 | disposition home or self-care (01) ==
PROVIDERS: PCP Internal Medicine; Visit Provider Orthopaedic Surgery Sports Medicine
DX: M17.11 Unilateral primary osteoarthritis, right knee (principal); Z96.651 Presence of right artificial knee joint; M62.81 Muscle weakness (generalized); M25.561 Pain in right knee; R26.9 Unspecified abnormalities of gait and mobility; Z51.89 Encounter for other specified aftercare
CPT/HCPCS: 97110; 97112; 97116; 97140; 97161; 97164

== ENCOUNTER 2025-04-23 09:09 | Outpatient (CLI) | payer MEDICARE, SELFPAY | END 2025-04-23 09:10 | disposition home or self-care (01) | LOC: NFLDREF 04-25 13:31 | PROVIDERS: PCP Internal Medicine; Referring Provider Internal Medicine; Visit Provider Internal Medicine | DX: E78.5 Hyperlipidemia, unspecified (principal); Z12.5 Encounter for screening for malignant neoplasm of prostate | CPT/HCPCS: 80053; 80061; G0103 ==